=== PATIENT | female | born 1955 | race Caucasian/White ===

== ENCOUNTER → 2017-01-02 | Outpatient (CLI) | payer OTHER | LOC: GIMAGING 10:21 | PROVIDERS: ATTEND Nurse Practitioner | DX: R05 Cough (principal) | CPT/HCPCS: 71020-PO ==

== ENCOUNTER → 2017-04-26 | Outpatient (CLI) | payer OTHER | LOC: FIMAGING 11:45 | PROVIDERS: ATTEND Family Medicine | DX: J40 Bronchitis, not specified as acute or chronic (principal); I51.7 Cardiomegaly ==

== ENCOUNTER 2017-06-04 06:44 | Day surgery (SDC) | payer OTHER ==
[2017-06-04] MEDS ORDERED: NS 500 ML IV SCH (08:00)
[2017-06-04 08:06] VITALS: TEMP 97.7
[2017-06-04] MEDS ORDERED: LIDOCAINE 2% JELLY 5 ML TUBE ONE (08:26)
[2017-06-04] MEDS ORDERED: SIMETHICONE DROPS 30 ML BOTTLE ONE (08:27)
[2017-06-04] MEDS ORDERED: MIDAZOLAM 2 MG/2 ML VIAL ONE ×2 (08:33→08:34)
[2017-06-04] MEDS ORDERED: fentaNYL 100 MCG/2 ML INJ ONE ×2 (08:35→08:36)
[2017-06-04] MEDS ORDERED: ALBUTEROL 3 ML DEYVIAL ONE (08:38)
--- NOTE | 2017-06-04 08:47 | PDHPUP ---
History & Physical Update H&P update statement: This history and physical update is based on an assessment of the patient which was completed after admission or registration (within 24 hours), but prior to the surgery/procedure. H&P update: H&P reviewed & patient examined, no change in patient's condition since H&P completed
[2017-06-04] MEDS ORDERED: LIDOCAINE 1% 300 MG/30 ML SDV ONE (08:48)
--- NOTE | 2017-06-04 08:49 | PDPROPOC ---
Sedation Plan of Care Sedation Plan of Care: vital signs stable, mental status noted, patient educated of risks, benefits, alternatives, patient can tolerate sedation ASA Classification: ASA 1 Mallampati Score: Class 3
[2017-06-04 09:46] VITALS: RESP 15
[2017-06-04 11:25] VITALS: BP 133/75; PULSE 56; O2SAT 95
== END 2017-06-04 10:05 | disposition home or self-care (01) ==
LOC: FSGY 06:44
PROVIDERS: ATTEND Internal Medicine Critical Care Medicine
PROC: 0B9B8ZX Drainage of Left Lower Lobe Bronchus, Via Natural or Artificial Opening Endoscopic, Diagnostic (ICD-10-PCS; principal; 2017-06-04 08:30)
DX: R05 Cough (principal); R91.8 Other nonspecific abnormal finding of lung field; I10 Essential (primary) hypertension; E78.5 Hyperlipidemia, unspecified; Z86.718 Personal history of other venous thrombosis and embolism
CPT/HCPCS: J0171; J2250; J3010

== ENCOUNTER → 2017-07-18 | Outpatient (CLI) | payer OTHER | LOC: BHFA 10:00 | PROVIDERS: ATTEND Internal Medicine Cardiovascular Disease | DX: I10 Essential (primary) hypertension (principal); R05 Cough; I34.0 Nonrheumatic mitral (valve) insufficiency ==

== ENCOUNTER 2017-08-10 23:10 | Inpatient (IN) | payer OTHER ==
[2017-08-10] MEDS ORDERED: OXYCODONE/APAP 5/325 TAB PO ONE (23:41)
--- NOTE | 2017-08-10 23:45 | EDPHY ---
H & P Stated Complaint: slip and fall, hit head with hematoma and spine and rib pain Time Seen by Provider: 08/10/17 23:23 HPI/ROS: Chief Complaint: Back and head pain status post fall HPI: 61-year-old woman who is scheduled for colonoscopy tomorrow morning. She has been going through a [employer] bowel prep is been having profuse watery diarrhea. Patient states she started developing nausea vomiting this evening. She felt in up wave of nausea come on her and ran to the kitchen. She vomited before getting there on the kitchen floor. She then proceeded to slipped on her emesis, falling and landing on her back. She struck her occiput on the ground and states she landed subcutaneously on her back. She did not have a loss of consciousness. She has had worsening bilateral upper and lower back pain since. No shortness of breath. No chest pain. No abdominal pain. After a little while she was able to get up and walk. She has no new numbness or weakness. No tingling. Does not have a history of back pain in the past. Has a history of are as D on the right side and normally takes Lyrica, baclofen, and takes benzos at night for sleep. She also normally takes Celexa but has been off this in preparation for her colonoscopy. She has not had any painting or loss of conscious. No chest pain. ROS: 10 point Review of Systems is negative except as noted in the HPI. PMH: Hypothyroidism, RSD, Social History: No smoking, no alcohol, no recreational drug use Family History: non-contributory Physical Exam: Gen: Awake, Alert, No Distress HEENT: Moderate occipital hematoma with tenderness. No step-offs or crepitus. Nose: no rhinorrhea Eyes: PERRLA, EOMI Mouth: Moist mucosa Neck: Supple, no JVD Chest: nontender, lungs clear to auscultation Heart: S1, S2 normal, no murmur Abd: Soft, non-tender, no guarding Back: no CVA tenderness, mild diffuse midline tenderness without step-offs or crepitus in the thoraco and lumbar spine. Moderate bilateral paraspinal muscle spasm. 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, bilateral TKRs, c sections - Social History Smoking Status: Never smoked Constitutional: Initial Vital Signs Temperature (C) 36.7 C 08/10/17 23:27 Heart Rate 85 08/10/17 23:27 Respiratory Rate 20 08/10/17 23:27 Blood Pressure 132/103 H 08/10/17 23:27 O2 Sat (%) 78 L 08/10/17 23:27 O2 Delivery Mode Nasal Cannula O2 (L/minute) 2 Allergies/Adverse Reactions: No Known Allergies Allergy (Verified 06/04/17 07:41) Home Medications: Medication Instructions Recorded Atorvastatin Calcium 20 mg PO HS 06/04/17 Baclofen 10 mg (*) 10 mg PO TID PRN 06/04/17 HCTZ (*) 25 mg PO HS 06/04/17 Metoprolol Succinate Xr 50 mg PO BID 06/04/17 Montelukast Sodium 10 mg PO HS 06/04/17 Pregabalin [Lyrica] 150 mg PO HS 06/04/17 celeCOXIB [Celebrex (*)] 200 mg PO HS 06/04/17 clonazePAM [klonoPIN (*)] 1 mg PO HS 06/04/17 traZODone [traZODONE 50MG (*)] 50 mg PO HS 06/04/17 Flonase Allergy Relief 08/10/17 Medical Decision Making - Diagnostics Imaging Results: Lumbar and thoracic x-rays reveal a T12 anterior compression fracture per my interpretation. Imaging: I viewed and interpreted images myself ED Course/Re-evaluation: 5-year-old woman status post fall after vomiting after a bowel prep for colonoscopy. She has no neurologic findings. X-rays show a presumably new T12 anterior compression fracture. She has required morphine and Dilaudid here. Will admit for pain control. I have discussed with Dr. Myers. He will admit for further care. - Data Points Medications Given: Discontinued Medications Sodium Chloride (Ns) 1,000 mls @ 0 mls/hr IV EDNOW ONE; Wide Open PRN Reason: Protocol Stop: 08/11/17 00:29 Last Admin: 08/11/17 00:29 Dose: 1,000 mls Morphine Sulfate (Morphine) 4 mg IVP EDNOW ONE Stop: 08/11/17 00:23 Last Admin: 08/11/17 00:28 Dose: 4 mg Ondansetron HCl (Zofran Odt) 4 mg PO EDNOW ONE Stop: 08/10/17 23:48 Last Admin: 08/10/17 23:48 Dose: 4 mg Oxycodone/Acetaminophen (Percocet 5/325) 2 tab PO EDNOW ONE Stop: 08/10/17 23:42 Last Admin: 08/11/17 00:32 Dose: Not Given Promethazine HCl (Phenergan) 12.5 mg IVP EDNOW ONE Stop: 08/11/17 00:41 Last Admin: 08/11/17 00:42 Dose: 12.5 mg Departure - Departure Disposition: [facility] Inpatient Acute Clinical Impression: Thoracic compression fracture, Nausea & vomiting Condition: Fair Referrals: Patient,NotPresent [Unknown] - As per Instructions
[2017-08-10] MEDS ORDERED: ONDANSETRON DISINTEGRATING 4 MG TAB ONE (23:47)
[2017-08-10] MEDS ORDERED: ONDANSETRON DISINTEGRATING 4 MG TAB PO ONE (23:47)
[2017-08-11] MEDS ORDERED: NS 1,000 ML IV ONE (00:28)
[2017-08-11] MEDS ORDERED: PROMETHAZINE HCL 25 MG/ML INJ IVP ONE (00:40)
[2017-08-11] MEDS ORDERED: HYDROmorphONE/DILAUDID 1 MG/ML INJ IVP ONE (00:49)
[2017-08-11 01:05] LABS: % IMMATURE GRANULYOCYTES 0.9 % (0.0-1.1); ABSOLUTE IMMATURE GRANULOCYTES 0.09 10^3/uL (0.00-0.10); ADD DIFF? NO; ADD MORPH? NO; ADD SCAN? NO; ATYPICAL LYMPHOCYTE FLAG 10 (0-99); FRAGMENT RBC FLAG 0 (0-99); HEMATOCRIT 40.1 % (38.0-47.0); HEMOGLOBIN 14.4 g/dL (12.6-16.3); LEFT SHIFT FLG 10 (0-99); LIPEMIA HEMOLYSIS FLAG 90 (0-99); MEAN CELL HEMOGLOBIN 32.2 pg (27.9-34.1); MEAN CELL HEMOGLOBIN CONCENTR. 35.9 g/dL (32.4-36.7); MEAN CELL VOLUME 89.7 fL (81.5-99.8); MEAN PLATELET VOLUME 10.3 fL (8.7-11.7); PLATELET CLUMPS FLAG 0 (0-99); PLATELET COUNT 216 10^3/uL (150-400); RED BLOOD CELL COUNT 4.47 10^6/uL (4.18-5.33); RED CELL DISTRIBUTION WIDTH 12.7 % (11.5-15.2)
--- NOTE | 2017-08-11 01:08 | PDGENHP ---
History and Physical - Chief Complaint Back pain - History of Present Illness 61 yo F w/ hx of chronic cough, CAD, and RSD presents with back pain after a fall. Patient was undergoing a colonoscopy prep, which led to nausea and vomiting. She slipped on some of her vomit and fell on her back. After that she experienced severe back pain. She denies any leg weakness or bowel/bladder incontinence. Colonoscopy was for routine screening purposes. Work-up in the ED was notable for a T12 compression fracture. She is being admitted for pain control and therapy evaluation. History Information - Allergies/Home Medication List Allergies/Adverse Reactions: No Known Allergies Allergy (Verified 06/04/17 07:41) Home Medications: Atorvastatin Calcium 20 mg PO HS 06/04/17 [Last Taken 06/03/17 23:00] Baclofen 10 mg (*) 10 mg PO TID PRN 06/04/17 [Last Taken 06/03/17 23:00] HCTZ (*) 25 mg PO HS 06/04/17 [Last Taken 06/03/17 23:00] Metoprolol Succinate Xr 50 mg PO BID 06/04/17 [Last Taken 06/03/17 23:00] Montelukast Sodium 10 mg PO HS 06/04/17 [Last Taken 06/03/17 23:00] Pregabalin [Lyrica] 150 mg PO HS 06/04/17 [Last Taken 06/03/17 23:00] celeCOXIB [Celebrex (*)] 200 mg PO HS 06/04/17 [Last Taken 06/03/17 23:00] clonazePAM [klonoPIN (*)] 1 mg PO HS 06/04/17 [Last Taken 06/03/17 23:00] traZODone [traZODONE 50MG (*)] 50 mg PO HS 06/04/17 [Last Taken 06/03/17 23:00] Flonase Allergy Relief 08/10/17 [Last Taken Unknown] I have personally reviewed and updated: family history, medical history - Past Medical History coronary artery disease Additional medical history: Chronic cough. RSD - Surgical History Additional surgical history: Bilateral TKAs in 2009 - Family History Positive for: cancer Additional family history: Thyroid disease - Social History Smoking Status: Never smoked Drug Use: None Review of Systems Review of Systems: ROS: 10pt was reviewed & negative except for what was stated in HPI & below Physical Exam Physical Exam: Temp Pulse Resp BP Pulse Ox 36.7 C 79 20 163/86 H 96 08/10/17 23:27 08/11/17 00:44 08/11/17 00:44 08/11/17 00:44 08/11/17 00:44 Constitutional: appears nourished, uncomfortable Eyes: PERRL, EOMI Ears, Nose, Mouth, Throat: moist mucous membranes, no oral mucosal ulcers Cardiovascular: regular rate and rhythym, no murmur, rub, or gallop Respiratory: no respiratory distress, no rales or rhonchi Gastrointestinal: normoactive bowel sounds, soft, non-tender abdomen Skin: warm, normal color Musculoskeletal: full muscle strength, no muscle tenderness Neurologic: AAOx3, sensation intact bilaterally, CN II-XII Intact, No weakness, No numbness Psychiatric: interacting appropriately, not anxious Lab Data & Imaging Review 08/11/17 00:20 08/11/17 00:20 Imaging Review: Per discussion with ED physician Dr. Rodriguez, T12 compression fracture on XR. Assessment & Plan Assessment: 61 yo F w/ hx of RSD and chronic cough presents with fall and resulting compression fracture. Plan: 1. T12 Compression fracture - As a result of mechanical fall. Patient in severe pain upon arrival necessitating admission for pain control. - Oxycodone, hydromorphone PRN for pain control - Admit for observation - PT/OT consulted 2. Hx of chronic cough - With unclear etiology despite extensive work-up. Followed by pulmonology as an outpatient. 3. RSD - On Clonazepam, Celebrex, Lyrica, and Baclofen as outpatient. 4. Hx CAD - Patient reports prior cath but no intervention performed. On ASA, BB , statin as outpatient. Diet - Regular Code - Full Ppx - SCDs Dispo - Admit to observation status
[2017-08-11 01:10] LABS: ANION GAP 10 mEq/L (8-16); CALCIUM 9.2 mg/dL (8.5-10.4); CARBON DIOXIDE 27 mEq/l (22-31); CHLORIDE 89 mEq/L (97-110); CREATININE 0.7 mg/dL (0.6-1.0); GLOMERULAR FILTRATION RATE > 60; GLUCOSE 113 mg/dL (70-100); POTASSIUM 3.1 mEq/L (3.5-5.2); SODIUM 126 mEq/L (134-144)
[2017-08-11] MEDS: HYDROmorphONE/DILAUDID 1 MG/ML INJ IVP PRN ×3 (02:25→19:27)
[2017-08-11] MEDS: ONDANSETRON 4 MG/2 ML VIAL IVP PRN ×3 (02:25→18:26)
[2017-08-11] MEDS: ONDANSETRON DISINTEGRATING 4 MG TAB PO PRN ×3 (03:57→22:55)
[2017-08-11] MEDS: oxyCODONE IR 5 MG TAB PO PRN ×2 (03:57→08:07)
--- NOTE | 2017-08-11 06:30 | CPEKG ---
Heart Rate: 66 RR Interval: 909 P-R Interval: 172 QRSD Interval: 102 QT Interval: 457 QTC Interval: 479 P Mcbee: 38 QRS Mcbee: 2 T Wave Mcbee: 104 EKG Severity - ABNORMAL ECG - EKG Impression: SINUS RHYTHM EKG Impression: NONSPECIFIC T ABNORMALITIES, LATERAL LEADS Electronically Signed By: J Carlos Lopez 14-Aug-2017 13:46:06
[2017-08-11 07:03] LABS: CK-MB INTERPRETATION NEGATIVE (NEGATIVE); CREATINE KINASE-MB FRACTION 2.79 ng/mL (0.00-3.19)
[2017-08-11 07:09] LABS: TROPONIN I 0.032 ng/mL (0.000-0.034)
[2017-08-11] MEDS: ACETAMINOPHEN 325 MG TAB PO PRN (08:07)
[2017-08-11] MEDS: D5W NS 1,000 ML IV SCH (09:48)
[2017-08-11] MEDS: PANTOPRAZOLE SODIUM 40 MG in NS 100 ML IV SCH (10:04)
--- NOTE | 2017-08-11 12:17 | PDANEPAE ---
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 - Pulmonary History Hx COPD: No Hx Asthma/Reactive Airway Disease: No Hx Recent Upper Respiratory Infection: No Hx Oxygen in Use at Home: No Hx Sleep Apnea: Yes Sleep Apnea Screening Result - Last Documented: Negative Pulmonary History Comment: chronic cough for 2 years that has gotten progressively worse - Neurologic History Hx Cerebrovascular Accident: No Hx Seizures: Yes Hx Dementia: No Neurologic History Comment: 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 multiple knee surgies with left TKA and right TKA in 2009. ulnar medial nerve graft repair right arm 1997 ANE Review of Systems Review of systems is: negative Review of Systems: - Exercise capacity Exercise capacity: >=4 METS ANE Patient History - Allergies Allergies/Adverse Reactions: No Known Allergies Allergy (Verified 06/04/17 07:41) - Home Medications Home medications: home medication list seen and reviewed Home Medications: Baclofen [Baclofen 10 mg (*)] 20 mg PO HS 06/04/17 [Last Taken 08/09/17] Hydrochlorothiazide [HCTZ (*)] 25 mg PO HS 06/04/17 [Last Taken 08/09/17] Metoprolol Succinate Xr [Toprol Xl 50 mg (*)] 50 mg PO BID 06/04/17 [Last Taken 08/10/17 09:00] Montelukast Sodium [Singulair 10 mg (*)] 10 mg PO HS 06/04/17 [Last Taken ] celeCOXIB [Celebrex (*)] 400 mg PO HS 06/04/17 [Last Taken 08/09/17] clonazePAM [klonoPIN (*)] 1 mg PO HS 06/04/17 [Last Taken 08/09/17] traZODone [traZODONE 50MG (*)] 100 mg PO HS 06/04/17 [Last Taken 08/09/17] Fluticasone Nasal [Flonase Nasal [place] (RX)] 2 sprays NASAL HS 08/10/17 [Last Taken 08/09/17] Atorvastatin Calcium [Lipitor 20 mg (*)] 20 mg PO HS 08/11/17 [Last Taken ] Cetirizine [ZyrTEC 10 mg (*)] 10 mg PO HS 08/11/17 [Last Taken 08/09/17] Cholecalciferol Vit D3 [Vitamin D3 (*)] 1,000 units PO HS 08/11/17 [Last Taken 08/09/17] Estradiol [VAGIFEM] 10 mcg VG SUWE 08/11/17 [Last Taken 08/06/17] Lidocaine 5% [Lidoderm 5% Patch (*)] 1 ea TD HS 08/11/17 [Last Taken 08/09/17] Multivitamins [Multivitamin (*)] 1 each PO HS 08/11/17 [Last Taken 08/09/17] Pregabalin [Lyrica 75mg (*)] 150 mg PO HS 08/11/17 [Last Taken 08/09/17] - NPO status NPO Status: no food or drink >8 hours NPO Since - Liquids (Date): 08/10/17 NPO Since - Liquids (Time): 17:00 NPO Since - Solids (Date): 08/09/17 NPO Since - Solids (Time): 19:00 - Anes Hx Anes Hx: no prior problems - Smoking Hx Smoking Status: Never smoked - Family Anes Hx Family Anes Hx: none Family Hx Anesthesia Complications: no ANE Labs/Vital Signs - Labs Result Diagrams: 08/11/17 00:20 08/11/17 00:20 - Vital Signs Blood Pressure: 114/67 Heart Rate: 76 Respiratory Rate: 18 O2 Sat (%): 96 Height: 172.72 cm Weight: 74.8 kg ANE Physical Exam - Airway Neck exam: FROM Mallampati Score: Class 2 Mouth exam: normal dental/mouth exam - Pulmonary Pulmonary: no respiratory distress - Cardiovascular Cardiovascular: regular rate and rhythym - ASA Status ASA Status: II ANE Anesthesia Plan Total IV Anesthesia: Yes
[2017-08-11] MEDS ORDERED: LIDOCAINE 2% 100 MG/5 ML SYR ONE (12:20)
[2017-08-11] MEDS ORDERED: PROPOFOL/EMULSION 500 MG/50 ML BOTTLE IV ONE ×2 (12:20→17:18)
[2017-08-11] MEDS ORDERED: OXYCODONE/APAP 5/325 TAB PO PRN (12:56)
[2017-08-11] MEDS ORDERED: ONDANSETRON 4 MG/2 ML VIAL IVP PRN (12:56)
[2017-08-11] MEDS ORDERED: fentaNYL 100 MCG/2 ML INJ IVP PRN (12:56)
[2017-08-11] MEDS ORDERED: NALOXONE HCL 0.4 MG/ML INJ IVP PRN (12:56)
[2017-08-11] MEDS ORDERED: DEXAMETHASONE 4 MG/ML VIAL IVP PRN (12:56)
[2017-08-11] MEDS ORDERED: HYDROCODONE/APAP 5/325 TAB PO PRN (12:56)
--- NOTE | 2017-08-11 12:57 | POSTANESTH ---
Post Anesthetic Evaluation Cardiovascular Status: Similar to Pre-Op Cond Respiratory Status: Similar to Pre-op Cond. Level of Consciousness/Mental Status: Can Participate in Eval, Moderately Sleepy Pain Control: Adequate, Prn Tx Ordered Nausea/Vomiting Control: Adequate, Prn Tx Ordered Complications Possibly Related to Anesthesia: None Noted
--- NOTE | 2017-08-11 12:57 | GIREPORT ---
Former[facility], Later [facility] Surgical Services - Endoscopy Department Patient Name: STANLEY VALDEZ Procedure Date: 08/11/2017 12:29 PM Patient Type: Inpatient Attending MD/ ER Physician: Allyn Freitas MD Procedure: Upper GI endoscopy Indications: Dysphagia, Heartburn, Chronic cough Providers: Allyn Freitas MD Medicines: Sedation Administered by an Anesthesia Professional Complications: No immediate complications. Description of Procedure: After obtaining informed consent, the endoscope was passed under direct vision. Throughout the procedure, the patient's blood pressure, pulse, and oxygen saturations were monitored continuous ly. The Endoscope was introduced through the mouth, and advanced to the third part of duodenum. The upper GI endoscopy was accomplished without difficulty. The patient tolerated the procedure well. Findings: The middle third of the esophagus was normal. Biopsies were taken with a cold forceps for histol ogy. The examined esophagus was normal. A guidewire was placed and the scope was withdrawn. Dilation was performed with a Savary dilator with no resistance at 54 Fr. Diffuse mild inflammation characterized by congestion (edema) and erythema was found in the enti re examined stomach. Biopsies were taken with a cold forceps for histology. The examined duodenum was normal. Estimated Blood Loss: Estimated blood loss: none. Post Op Diagnosis: - Normal middle third of esophagus. Biopsied. - Normal esophagus. Dilated. - Gastritis. Biopsied. - Normal examined duodenum. Recommendation: - [facility]. - Await pathology results. - Return to GI office, with Dr. Byrne, as previously scheduled. Attending Participation: I personally performed the entire procedure. ,Electronically Sigened by Allyn Freitas MD> Allyn Freitas MD 08/11/2017 12:56:49 PM Number of Addenda: 0 Note Initiated On: 08/11/2017 12:29 PM [email or web address]
--- NOTE | 2017-08-11 12:58 | GIREPORT ---
[facility] Surgical Services - Endoscopy Department Patient Name: STANLEY VALDEZ Procedure Date: 08/11/2017 12:38 PM Patient Type: Inpatient Attending MD/ ER Physician: Allyn Freitas MD Procedure: Colonoscopy Indications: Screening for colorectal malignant neoplasm, Colon cancer screening in patient at increased risk: Family history of 1st-degree relative with c olon polyps at age 60 years (or older), Colon cancer screening in patient at increased risk: Family history of colon polyps in multiple 1st-degree relatives Providers: Allyn Freitas MD Medicines: Sedation Administered by an Anesthesia Professional Complications: No immediate complications. Description of Procedure: After obtaining informed consent, the scope was passed under direct vision. Throughout the proce dure, the patient's blood pressure, pulse, and oxygen saturations were monitored continuously. The Colonoscope with irrigation channel was introduced through the and advanced to the cecum, identi fied by appendiceal orifice and ileocecal valve. The colonoscopy was performed without difficulty. Th e patient tolerated the procedure well. The quality of the bowel preparation was good. The ileocec al valve, appendiceal orifice, and rectum were photographed. Findings: The entire examined colon appeared normal. Estimated Blood Loss: Estimated blood loss: none. Post Op Diagnosis: - The entire examined colon is normal. - No specimens collected. Recommendation: - Return [facility] to [facility] for [facility] care. - Repeat colonoscopy in 10 years for screening purposes. Attending Participation: I personally performed the entire procedure. ,Electronically Sigened by Allyn Freitas MD> Allyn Freitas MD 08/11/2017 12:58:24 PM Number of Addenda: 0 Note Initiated On: 08/11/2017 12:38 PM Total Procedure Duration Time 0 hours 11 minutes 59 seconds [email or web address]
--- NOTE | 2017-08-11 13:09 | SUROPNOTE ---
[facility] Operative Report - Surgery BRIEF EGD/COLON NOTE (full note to follow) MEDS: per anesthesia PREP QUALITY: excellent INDICATION: screening, dysphagia, cough COMPLICATIONS: none acutely FINDINGS EGD - nl esophagus - bx'd and dilated - minimal gastritis - bx'd - nl duodenum COLON - normal IMPRESSION/RECS: 1. Screening - recall for colon in 10yrs 2. Cough/dysphagia - no clear explanation at EGD - bx of esopahgus and stomach - dilation of esophagus empricially with 54Fr savary 3. Will follow-up in GI clinic, with Dr. Byrne 4. My office will call pt to review path and discuss f/u 5. Will sign off, call with questions
--- NOTE | 2017-08-11 13:39 | HOSPPROG ---
Hospitalist Progress Note Assessment/Plan: 61 yo F w/ hx of RSD and chronic cough presents with fall and resulting compression fracture. Plan: #. T12 Compression fracture - - As a result of mechanical fall. - Patient in severe pain - unable to tolerate brace due to RSD. - hope for Vertebroplasty per IR, await consult - Oxycodone, hydromorphone PRN for pain control - Admit for observation - PT/OT consulted #. GI - pt was prepping for EGD/colon when fell - D/W Dr Freitas, EGD/colon done today - FU outpt # Hx of chronic cough - - With unclear etiology despite extensive work-up. - Followed by pulmonology as an outpatient. - EGD today #. RSD - RUE - On Clonazepam, Celebrex, Lyrica, and Baclofen as outpatient. - unable to tolerate back brace - cont meds #. Hx CAD - - Patient reports prior cath but no intervention performed. On ASA, BB, statin as outpatient. Diet - NPO Code - Full Ppx - SCDs Dispo - Admit to observation status Spent >45 minutes in care coordination Subjective: Still having back pain. Some nausea. Objective: Vital Signs Temp Pulse Resp BP Pulse Ox 37 C 76 18 114/67 96 08/11/17 12:59 08/11/17 12:17 08/11/17 12:17 08/11/17 12:17 08/11/17 12:17 08/10/17 08/11/17 08/12/17 05:59 05:59 05:59 Intake Total 1050 Output Total 150 200 Balance 900 -200 - Physical Exam Constitutional: appears nourished, uncomfortable, No chronically ill appearing Eyes: PERRL, anicteric sclera, EOMI Ears, Nose, Mouth, Throat: moist mucous membranes, hearing normal, ears appear normal Cardiovascular: regular rate and rhythym, No JVD, No edema Respiratory: no respiratory distress, no rales or rhonchi, reduced air movement Gastrointestinal: normoactive bowel sounds, No tenderness, No ascites Skin: warm, normal color, No erythema Musculoskeletal: pain with ROM, muscular tenderness, generalized weakness Neurologic: AAOx3 Psychiatric: interacting appropriately, not anxious, not encephalopathic, thought process linear ICD10 Worksheet Patient Problems: Problems Problem Status Onset Thoracic compression fracture Acute Nausea & vomiting Acute
--- NOTE | 2017-08-11 13:44 | GCON ---
[f rep st] CONSULTATION INPATIENT CONSULTATION REFERRING PHYSICIAN: Kristi Franco NP REASON FOR CONSULTATION: Cough, dysphagia, and need for screening colonoscopy. CHIEF COMPLAINT: Back pain. HISTORY OF PRESENT ILLNESS: Briefly, the patient is a 61-year-old, pleasant, female who presents to the hospital after a fall. She sustained this fall because she became faint with nausea and vomiting during her bowel prep. She was due to undergo upper and lower endoscopy today. She came to the hospital because she had severe lower back pain. Ensuing workup led to the diagnosis of a T12 compression fracture. She has been admitted to the hospital for management of this fracture. It was felt that doing her previously scheduled outpatient upper and lower endoscopy at this time would be prudent, given the efficiencies. She did tolerate her prep and reports ultimately having clear stools. She does not want to undertake a repeat prep anytime soon after having undergone her recent fall. She reports she has a family history of colon polyps. She has had 3 first- degree relatives who underwent colonoscopy and were found to have polyps. All 3 of these relatives were over the age of 60. She reports intermittent cough symptoms. These have been for many years. They are rarely associated with some dysphagia. Her prior workup has apparently been unrevealing, she is not responding to proton pump inhibitor therapy. Upper endoscopy had been arranged to evaluate for esophageal sources of cough. ALLERGIES: None. CURRENT MEDICATIONS: Tylenol, Lipitor, baclofen, Celebrex, Zyrtec, vitamin D, Klonopin, Flonase, hydrochlorothiazide, Dilaudid, Lidoderm, Toprol, Singulair, multivitamins, pantoprazole, oxycodone, Zofran, Lyrica, trazodone. 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 SOCIAL HISTORY: She does not drink, smoke, or use drugs. FAMILY HISTORY: Significant for thyroid disease. REVIEW OF SYSTEMS: A complete 10-system review was undertaken with the patient and the pertinent positives and negatives are detailed in the History of Present Illness. PHYSICAL EXAM: GENERAL: This is a well-developed female, in no apparent distress. HEENT: Her pupils are equal, round, reactive to light and accommodation. Her sclerae are nonicteric. Oropharynx is clear. LUNGS: clear to asculation. NECK: Supple without lymphadenopathy. HEART: Regular without murmur. ABDOMEN: Soft. She has normoactive bowel sounds. EXTREMITIES: Free of cyanosis, clubbing, edema. Her right arm is held gingerly on a pillow. NEUROLOGIC: Grossly nonfocal. PSYCHIATRIC: Reveals normal mood and affect. SKIN: warm, dry, no bruises LABORATORY TESTING: Shows a normal CBC. Her sodium is 126, potassium of 3.1, chloride of 89, bicarb of 27, BUN of 11, creatinine 0.7. Imaging shows a T12 compression fracture. IMPRESSION/RECOMMENDATIONS: The patient is admitted to the hospital for the evaluation of a T12 compression fracture that she suffered in a fall on the night prior to admission. She is due for upper and lower endoscopy today, and has undertaken the prep for those procedures. I recommend she undergo those procedures now with the added benefit of using anesthesia for her sedation in the setting of the fracture. In addition, she has undergone the prep and is reluctant to repeat that prep anytime soon. Furthermore, undergoing upper and lower endoscopy should not impact her T12 compression fracture care. /[id number]/MODL MTDD
--- NOTE | 2017-08-11 17:00 | ASMTCMCOM ---
CM Note CM Note Notes: Pt admitted after al fall - sustained T12 compression fx. S/p colonoscopy (planned) today. OT has cleared. PT is still pending. CM to follow for any d/c needs. Date Signed: 08/11/2017 05:00 PM Electronically Signed By:PACO Hernandez
[2017-08-11] MEDS ORDERED: fentaNYL 100 MCG/2 ML INJ ONE (17:14)
[2017-08-11] MEDS ORDERED: MIDAZOLAM 2 MG/2 ML VIAL ONE ×2 (17:16→17:30)
[2017-08-11] MEDS ORDERED: LIDOCAINE 1% 300 MG/30 ML SDV ONE (17:33)
[2017-08-11] MEDS ORDERED: BUPIVACAINE 0.5% 30 ML SDV ONE (17:34)
--- NOTE | 2017-08-11 17:52 | POSTOPPROG ---
Post Op Note Date of Operation: 08/11/17 Surgeon: Michaela Sandra Anesthesiologist: Dr. Tapia Pre-op Diagnosis: T12 fracture Post-op Diagnosis: same Indication: severe pain Procedure: T12 kyphoplasty Findings: excellent cement distribution Inf/Abcess present in the surg proc area at time of surgery?: No Depth: Superfical (Skin SQ) EBL: Minimal Complications: None
--- NOTE | 2017-08-11 18:09 | POSTANESTH ---
Post Anesthetic Evaluation Cardiovascular Status: Normal, Stable Respiratory Status: Normal, Stable Level of Consciousness/Mental Status: Can Participate in Eval Pain Control: Adequate, Prn Tx Ordered Nausea/Vomiting Control: Adequate, Prn Tx Ordered Complications Possibly Related to Anesthesia: None Noted
[2017-08-11] MEDS ORDERED: ONDANSETRON 4 MG/2 ML VIAL ONE (18:25)
[2017-08-11] MEDS ORDERED: HYDROmorphONE/DILAUDID 1 MG/ML INJ ONE (19:26)
[2017-08-11] MEDS: clonazePAM 1 MG TAB PO SCH (19:40)
[2017-08-11] MEDS ORDERED: HYDROCHLOROTHIAZIDE 25 MG TAB PO SCH (21:00)
[2017-08-11] MEDS: BACLOFEN 10 MG TAB PO SCH (22:52)
[2017-08-11] MEDS: CETIRIZINE 10 MG TAB PO SCH (22:53)
[2017-08-11] MEDS: traZODone 50 MG TAB PO SCH (22:54)
[2017-08-11] MEDS: PREGABALIN 75 MG CAP PO SCH (22:55)
[2017-08-11] MEDS ORDERED: PROMETHAZINE HCL 25 MG/ML INJ IVP PRN (23:26)
[2017-08-11] MEDS: ATORVASTATIN CALCIUM 20 MG TAB PO SCH (23:31)
[2017-08-11] MEDS: PATCH REMOVAL 1 EA PATCH TD SCH (23:32)
[2017-08-11] MEDS: CHOLECALCIFEROL VIT D3 1,000 UNITS TAB PO SCH (23:32)
[2017-08-11] MEDS: MONTELUKAST SODIUM 10 MG TAB PO SCH (23:33)
[2017-08-11] MEDS: FLUTICASONE NASAL 120 SPRAYS/16 GM MDI EACHNARE SCH (23:33)
[2017-08-11] MEDS: MULTIVITAMINS 1 EACH TAB PO SCH (23:33)
[2017-08-11] MEDS: LIDOCAINE 5% 1 EA PATCH TD SCH (23:33)
[2017-08-11] MEDS: METOPROLOL SUCCINATE XR 50 MG TAB PO SCH (23:33)
[2017-08-12] MEDS: D5W NS 1,000 ML IV SCH (01:56)
[2017-08-12] MEDS: ONDANSETRON 4 MG/2 ML VIAL IVP PRN ×2 (01:56→06:43)
[2017-08-12] MEDS: oxyCODONE IR 5 MG TAB PO PRN ×3 (04:53→15:08)
[2017-08-12 05:43] LABS: ANION GAP 7 mEq/L (8-16); CARBON DIOXIDE 28 mEq/l (22-31); CHLORIDE 101 mEq/L (97-110); CREATININE 0.7 mg/dL (0.6-1.0); GLOMERULAR FILTRATION RATE > 60; GLUCOSE 113 mg/dL (70-100); POTASSIUM 3.1 mEq/L (3.5-5.2); SODIUM 136 mEq/L (134-144)
[2017-08-12] MEDS ORDERED: PROTOCOL POTASSIUM 1 DOSE MISC PRN (07:51)
--- NOTE | 2017-08-12 08:25 | HOSPPROG ---
Hospitalist Progress Note Assessment/Plan: 61 yo F w/ hx of RSD and chronic cough presents with fall and resulting compression fracture. Today is my first encounter with the patient, chart reviewed. * T12 compression fracture -status post kyphoplasty on 08/11 -patient did not tolerate the brace * hypokalemia -electrolyte protocol initiated * nausea -refractory to Zofran and Phenergan grand -patient attributes her symptoms from getting a colonoscopy in the prep -trial of low-dose Ativan, can consider some Zyprexa if her symptoms do not resolve * history of chronic cough, dysphagia and heartburn -follow up with pulmonology in the outpatient setting -possible GERD -status post colonoscopy for screening purposes, this was normal -status post upper GI with normal appearing esophagus with esophageal dilation * regional pain syndrome noted in the right upper extremity -resumed home meds which include clonazepam, Celebrex, Lyrica and baclofen * coronary artery disease disease -on aspirin, beta-sabrina and statin * plan. Will check on her later this afternoon to see if she is improved. The other issue she is having significant back pain. Will see how she does with physical therapy and occupational therapy. She may need a assisted facility Subjective: Carol is c/o ongoing nausea. Objective: Vital Signs Temp Pulse Resp BP Pulse Ox 36.8 C 96 18 133/84 H 90 L 08/12/17 08:00 08/12/17 08:00 08/12/17 08:00 08/12/17 08:00 08/12/17 08:00 Laboratory Results 08/12/17 04:58 08/11/17 08/12/17 08/13/17 05:59 05:59 05:59 Intake Total 1050 1500 Output Total 150 1000 Balance 900 500 - Physical Exam Constitutional: uncomfortable Eyes: PERRL Ears, Nose, Mouth, Throat: hearing normal Cardiovascular: regular rate and rhythym Respiratory: no respiratory distress Skin: warm Musculoskeletal: generalized weakness Neurologic: AAOx3 Psychiatric: interacting appropriately ICD10 Worksheet Patient Problems: Problems Problem Status Onset Nausea & vomiting Acute Thoracic compression fracture Acute
[2017-08-12] MEDS: METOPROLOL SUCCINATE XR 50 MG TAB PO SCH ×2 (08:55→20:55)
[2017-08-12] MEDS ORDERED: LORazepam 2 MG/ML INJ IVP ONE (09:31)
--- NOTE | 2017-08-12 10:21 | PDMN ---
Medical Necessity Medical necessity: change to IP; los >2 mn for T12 compression fx r/t fall, w/ inability to tolerate brace, severe pain; await IR eval; comorbid RSD, CAD; per progress note & order 08/11/17
[2017-08-12] MEDS: POTASSIUM CL 10 MEQ TAB PO ONE ×2 (11:38→11:52)
[2017-08-12] MEDS: PANTOPRAZOLE SODIUM 40 MG in NS 100 ML IV SCH (11:51)
[2017-08-12] MEDS: POTASSIUM Cl (KCl) 100 ML IV SCH ×3 (12:53→16:27)
[2017-08-12] MEDS: ONDANSETRON DISINTEGRATING 4 MG TAB PO PRN (15:16)
[2017-08-12] MEDS ORDERED: D5W 1/2 NS W/ 20 KCl/L 1,000 ML IV SCH (15:30)
[2017-08-12] MEDS: ACETAMINOPHEN 325 MG TAB PO PRN ×2 (15:38→19:48)
[2017-08-12] MEDS ORDERED: ENOXAPARIN 40 MG/0.4 ML SYR SC SCH (18:15)
--- NOTE | 2017-08-12 20:44 | SOAPPROG ---
SOAP Progress Note Assessment/Plan: Assessment: It appears that patient is moving better post kyphoplasty, and is reporting much less pain. However, my understanding is that patient is still asking for a good amount of pain medications. Continued nausea. This was contributed to pain degree yesterday when I was discussing kyphoplasty procedure with patient. That does not seem to be the case if patient indeed has less pain now post kyphoplasty, but same amount of nausea. Cause is yet unclear. Plan: Appears to do well from kyphoplasty standpoint. Will sign off. 08/12/17 20:41 Subjective: When I was walking into the room, patient was getting out of bed, without difficulty, with PT. Patient stated "I feel much better...back pain is much better...I couldn't do this yesterday...I just have a little bit of muscle pain left...but I'm still very nauseated. Objective: Vital Signs Temp Pulse Resp BP Pulse Ox 36.8 C 75 16 108/75 94 08/12/17 20:00 08/12/17 20:00 08/12/17 20:00 08/12/17 20:00 08/12/17 20:00 Laboratory Results 08/12/17 04:58 08/11/17 08/12/17 08/13/17 05:59 05:59 05:59 Intake Total 850 400 Output Total 800 Balance 50 400 Dressing without hematoma. No significant pain on palpation. Appears ill; complaining of significant nausea. PT was in room with [facility] pressures applied on forearm to help with nausea. Nausea seems better when pressure was applied, but appears to come back right away when pressure was taken off. ICD10 Worksheet Patient Problems: Problems Problem Status Onset Nausea & vomiting Acute Thoracic compression fracture Acute
[2017-08-12] MEDS: BACLOFEN 10 MG TAB PO SCH (20:53)
[2017-08-12] MEDS: PREGABALIN 75 MG CAP PO SCH (20:54)
[2017-08-12] MEDS: MONTELUKAST SODIUM 10 MG TAB PO SCH (20:54)
[2017-08-12] MEDS: CETIRIZINE 10 MG TAB PO SCH (20:55)
[2017-08-12] MEDS: traZODone 50 MG TAB PO SCH (20:55)
[2017-08-12 20:56] LABS: POTASSIUM 3.2 mEq/L (3.5-5.2)
[2017-08-12] MEDS: CHOLECALCIFEROL VIT D3 1,000 UNITS TAB PO SCH (20:56)
[2017-08-12] MEDS: MULTIVITAMINS 1 EACH TAB PO SCH (20:57)
[2017-08-12] MEDS: LIDOCAINE 5% 1 EA PATCH TD SCH (20:58)
[2017-08-12] MEDS: clonazePAM 1 MG TAB PO SCH (20:58)
[2017-08-12] MEDS: ATORVASTATIN CALCIUM 20 MG TAB PO SCH (20:58)
[2017-08-12] MEDS: ENOXAPARIN 40 MG/0.4 ML SYR SC SCH (20:58)
[2017-08-12] MEDS ORDERED: POTASSIUM CL 20 MEQ TAB PO ONE (22:29)
[2017-08-12] MEDS: FLUTICASONE NASAL 120 SPRAYS/16 GM MDI EACHNARE SCH (22:32)
[2017-08-12] MEDS: PATCH REMOVAL 1 EA PATCH TD SCH (22:43)
[2017-08-13 05:24] LABS: ALANINE AMINOTRANSFERASE 29 IU/L (9-52); ALBUMIN 2.3 g/dL (3.5-5.0); ALKALINE PHOSPHATASE 44 IU/L (38-126); ANION GAP 4 mEq/L (8-16); ASPARTATE AMINOTRANSFERASE 26 IU/L (14-46); BILIRUBIN,TOTAL 0.9 mg/dL (0.1-1.4); BILIRUBIN-CONJUGATED 0.3 mg/dL (0.0-0.5); BILIRUBIN-UNCONJUGATED 0.6 mg/dL (0.0-1.1); CARBON DIOXIDE 31 mEq/l (22-31); CHLORIDE 102 mEq/L (97-110); CREATININE 0.7 mg/dL (0.6-1.0); GLOMERULAR FILTRATION RATE > 60; GLUCOSE 81 mg/dL (70-100); POTASSIUM 3.1 mEq/L (3.5-5.2); SODIUM 137 mEq/L (134-144); TOTAL PROTEIN 4.2 g/dL (6.3-8.2)
[2017-08-13] MEDS ORDERED: POTASSIUM CL 10 MEQ TAB PO ONE ×2 (07:47→20:13)
[2017-08-13] MEDS: ACETAMINOPHEN 325 MG TAB PO PRN ×2 (07:59→16:46)
[2017-08-13] MEDS: METOPROLOL SUCCINATE XR 50 MG TAB PO SCH ×2 (09:54→20:59)
[2017-08-13] MEDS: PANTOPRAZOLE SODIUM 40 MG in NS 100 ML IV SCH (09:59)
--- NOTE | 2017-08-13 10:03 | HOSPPROG ---
Hospitalist Progress Note Assessment/Plan: 61 yo F w/ hx of RSD and chronic cough presents with fall and resulting compression fracture. * T12 compression fracture -status post kyphoplasty on 08/11 -patient did not tolerate the brace -her pain is much better today * hypokalemia -electrolyte protocol initiated *acute hypoxemia -oxygen levels dropped with activity -will get a chest xray for further evaluation * nausea -resolved * history of chronic cough, dysphagia and heartburn -follow up with pulmonology in the outpatient setting -possible GERD -status post colonoscopy for screening purposes, this was normal -status post upper GI with normal appearing esophagus with esophageal dilation * regional pain syndrome noted in the right upper extremity -resumed home meds which include clonazepam, Celebrex, Lyrica and baclofen * coronary artery disease disease -on aspirin, beta-sabrina and statin * plan. f/u with chest xray, spoke w CM/ patient is fearful of falling at home / looking at SNF for strengthening Subjective: Carol is feeling better, nausea and back pain have resolved. Very fearful about returning home. Objective: Vital Signs Temp Pulse Resp BP Pulse Ox 36.8 C 56 L 16 101/57 L 97 08/13/17 07:18 08/13/17 09:54 08/13/17 07:18 08/13/17 09:54 08/13/17 07:18 Laboratory Results 08/13/17 04:52 08/12/17 08/13/17 08/14/17 05:59 05:59 05:59 Intake Total 850 400 Output Total 800 Balance 50 400 - Physical Exam Constitutional: appears nourished, not in pain, uncomfortable Eyes: PERRL Ears, Nose, Mouth, Throat: hearing normal Cardiovascular: regular rate and rhythym Respiratory: no respiratory distress, reduced air movement, rhonchi (few loose) Skin: warm Musculoskeletal: generalized weakness Neurologic: AAOx3 Psychiatric: interacting appropriately, anxious ICD10 Worksheet Patient Problems: Problems Problem Status Onset Nausea & vomiting Acute Thoracic compression fracture Acute
[2017-08-13] MEDS: PANTOPRAZOLE SODIUM 40 MG TAB PO SCH (10:37)
[2017-08-13] MEDS ORDERED: Estradiol [Vagifem] 10 MCG VG SCH (11:40)
[2017-08-13] MEDS ORDERED: IPRATROPIUM/ALBUTEROL 3 ML DEYVIAL IH PRN (12:37)
--- NOTE | 2017-08-13 14:15 | ASMTCMCOM ---
CM Note CM Note Notes: PT and hospitalist [phone] agreeable and request referral to [facility] who accept pt. Pt likely to d/c tomorrow. Pt moved to . Date Signed: 08/13/2017 02:14 PM Electronically Signed By:PACO Landaverde
[2017-08-13] MEDS: AZITHROMYCIN IV 500 MG in D5W 250 ML IV SCH ×3 (17:59→19:23)
[2017-08-13 20:08] LABS: POTASSIUM 3.2 mEq/L (3.5-5.2)
[2017-08-13] MEDS: ATORVASTATIN CALCIUM 20 MG TAB PO SCH (20:30)
[2017-08-13] MEDS: CETIRIZINE 10 MG TAB PO SCH (20:30)
[2017-08-13] MEDS: clonazePAM 1 MG TAB PO SCH (20:31)
[2017-08-13] MEDS: MONTELUKAST SODIUM 10 MG TAB PO SCH (20:31)
[2017-08-13] MEDS: BACLOFEN 10 MG TAB PO SCH (20:32)
[2017-08-13] MEDS: traZODone 100 MG TAB PO SCH (20:32)
[2017-08-13] MEDS: CHOLECALCIFEROL VIT D3 1,000 UNITS TAB PO SCH (20:33)
[2017-08-13] MEDS: LIDOCAINE 5% 1 EA PATCH TD SCH (20:35)
[2017-08-13] MEDS: PREGABALIN 75 MG CAP PO SCH (20:44)
[2017-08-13] MEDS: MULTIVITAMINS 1 EACH TAB PO SCH (20:47)
[2017-08-13] MEDS ORDERED: POTASSIUM CL 10 MEQ TAB ONE (20:48)
[2017-08-13] MEDS: FLUTICASONE NASAL 120 SPRAYS/16 GM MDI EACHNARE SCH (21:14)
[2017-08-13] MEDS: PATCH REMOVAL 1 EA PATCH TD SCH (22:06)
[2017-08-13] MEDS: ENOXAPARIN 40 MG/0.4 ML SYR SC SCH (22:06)
[2017-08-14 05:06] LABS: % IMMATURE GRANULYOCYTES 0.4 % (0.0-1.1); ABSOLUTE IMMATURE GRANULOCYTES 0.02 10^3/uL (0.00-0.10); ADD DIFF? NO; ADD MORPH? NO; ADD SCAN? NO; ATYPICAL LYMPHOCYTE FLAG 10 (0-99); FRAGMENT RBC FLAG 20 (0-99); HEMATOCRIT 29.3 % (38.0-47.0); HEMOGLOBIN 10.3 g/dL (12.6-16.3); LEFT SHIFT FLG 0 (0-99); LIPEMIA HEMOLYSIS FLAG 90 (0-99); MEAN CELL HEMOGLOBIN 32.5 pg (27.9-34.1); MEAN CELL HEMOGLOBIN CONCENTR. 35.2 g/dL (32.4-36.7); MEAN CELL VOLUME 92.4 fL (81.5-99.8); MEAN PLATELET VOLUME 10.3 fL (8.7-11.7); PLATELET CLUMPS FLAG 10 (0-99); PLATELET COUNT 141 10^3/uL (150-400); RED BLOOD CELL COUNT 3.17 10^6/uL (4.18-5.33)
[2017-08-14 05:26] LABS: ANION GAP 3 mEq/L (8-16); CALCIUM 8.3 mg/dL (8.5-10.4); CARBON DIOXIDE 30 mEq/l (22-31); CHLORIDE 105 mEq/L (97-110); CREATININE 0.7 mg/dL (0.6-1.0); GLOMERULAR FILTRATION RATE > 60; GLUCOSE 82 mg/dL (70-100); POTASSIUM 3.8 mEq/L (3.5-5.2); SODIUM 138 mEq/L (134-144)
[2017-08-14] MEDS: ACETAMINOPHEN 325 MG TAB PO PRN ×2 (09:05→16:33)
[2017-08-14] MEDS: ALBUTEROL 3 ML DEYVIAL IH PRN (09:06)
[2017-08-14] MEDS: PANTOPRAZOLE SODIUM 40 MG TAB PO SCH (09:06)
[2017-08-14] MEDS: METOPROLOL SUCCINATE XR 50 MG TAB PO SCH ×2 (10:43→21:09)
--- NOTE | 2017-08-14 11:02 | HOSPPROG ---
Hospitalist Progress Note Assessment/Plan: 61 yo F w/ hx of RSD and chronic cough presents with fall and resulting compression fracture. * T12 compression fracture -status post kyphoplasty on 08/11 -patient did not tolerate the brace -her pain has resolved * hypokalemia -electrolyte protocol initiated *acute hypoxemia/left lower lobe pna -blood cx pending -procalcitonin at 0.25 which shows possible local bacterial infection -day #2 of azithromycin and ceftriaxone -Influenza is negative -trial of Advair/ has hx of bronchitis, chronic cough * nausea -resolved * history of chronic cough, dysphagia and heartburn -follow up with pulmonology in the outpatient setting -possible GERD -status post colonoscopy for screening purposes, this was normal -status post upper GI with normal appearing esophagus with esophageal dilation * regional pain syndrome noted in the right upper extremity -resumed home meds which include clonazepam, Celebrex, Lyrica and baclofen * coronary artery disease disease -on aspirin, beta-sabrina and statin * plan. SNF tomorrow, further f/u with Dr Ocampo/pulmonology Subjective: Carol is feeling better/ still short of breath, but feeling better. Objective: Vital Signs Temp Pulse Resp BP Pulse Ox 36.8 C 65 18 121/69 H 95 08/14/17 07:42 08/14/17 07:42 08/14/17 07:42 08/14/17 07:42 08/14/17 07:42 Laboratory Results 08/14/17 04:39 08/14/17 04:39 08/13/17 08/14/17 08/15/17 05:59 05:59 05:59 Intake Total 400 950 Output Total 1200 600 Balance 400 -250 -600 - Physical Exam Constitutional: no apparent distress, appears nourished, not in pain Eyes: PERRL Ears, Nose, Mouth, Throat: hearing normal Cardiovascular: regular rate and rhythym Respiratory: no respiratory distress, reduced air movement (left base) Skin: warm Musculoskeletal: generalized weakness Neurologic: AAOx3 Psychiatric: interacting appropriately, not anxious ICD10 Worksheet Patient Problems: Problems Problem Status Onset Nausea & vomiting Acute Thoracic compression fracture Acute
[2017-08-14] MEDS ORDERED: POTASSIUM CL 10 MEQ TAB PO ONE ×2 (11:33→21:03)
[2017-08-14] MEDS: FLUTICASONE/SALMETER 250/50MCG DISKUS IH SCH ×2 (12:13→22:09)
[2017-08-14] MEDS ORDERED: Estradiol [Vagifem] 10 MCG VG SCH (15:15)
[2017-08-14] MEDS: AZITHROMYCIN IV 500 MG in D5W 250 ML IV SCH (17:00)
[2017-08-14] MEDS ORDERED: FLU VACC QS 2017-18 (3YR+)/PF 0.5 ML SYR (FLUARIX QUAD) IM ONE (17:38)
[2017-08-14] MEDS ORDERED: PNEUMOCOCCAL 0.5ML VACCINE VIAL IM ONE (17:38)
[2017-08-14 20:07] LABS: POTASSIUM 3.8 mEq/L (3.5-5.2)
[2017-08-14] MEDS: BACLOFEN 10 MG TAB PO SCH (21:05)
[2017-08-14] MEDS: ATORVASTATIN CALCIUM 20 MG TAB PO SCH (21:05)
[2017-08-14] MEDS: CETIRIZINE 10 MG TAB PO SCH (21:07)
[2017-08-14] MEDS: CHOLECALCIFEROL VIT D3 1,000 UNITS TAB PO SCH (21:07)
[2017-08-14] MEDS: ENOXAPARIN 40 MG/0.4 ML SYR SC SCH (21:07)
[2017-08-14] MEDS: clonazePAM 1 MG TAB PO SCH (21:07)
[2017-08-14] MEDS: PREGABALIN 75 MG CAP PO SCH (21:10)
[2017-08-14] MEDS: MONTELUKAST SODIUM 10 MG TAB PO SCH (21:10)
[2017-08-14] MEDS: MULTIVITAMINS 1 EACH TAB PO SCH (21:10)
[2017-08-14] MEDS: traZODone 100 MG TAB PO SCH (21:20)
[2017-08-14] MEDS: LIDOCAINE 5% 1 EA PATCH TD SCH (21:21)
[2017-08-14] MEDS: PATCH REMOVAL 1 EA PATCH TD SCH (22:41)
[2017-08-15 05:28] LABS: POTASSIUM 3.8 mEq/L (3.5-5.2)
[2017-08-15] MEDS: ACETAMINOPHEN 325 MG TAB PO PRN ×2 (05:39→12:10)
[2017-08-15] MEDS: FLUTICASONE NASAL 120 SPRAYS/16 GM MDI EACHNARE SCH (07:35)
[2017-08-15] MEDS: METOPROLOL SUCCINATE XR 50 MG TAB PO SCH (08:15)
[2017-08-15] MEDS: PANTOPRAZOLE SODIUM 40 MG TAB PO SCH (08:15)
[2017-08-15] MEDS: FLUTICASONE/SALMETER 250/50MCG DISKUS IH SCH (08:31)
[2017-08-15] MEDS: ALBUTEROL 3 ML DEYVIAL IH PRN (08:41)
[2017-08-15] MEDS ORDERED: POTASSIUM CL 10 MEQ TAB PO ONE (09:00)
[2017-08-15] MEDS ORDERED: LACTULOSE 20 GM/30 ML UDCUP PO PRN (09:46)
[2017-08-15] MEDS ORDERED: MAGNESIUM HYDROXIDE 30 ML UDCUP PO PRN (09:46)
[2017-08-15] MEDS ORDERED: BISACODYL 10 MG SUPP PR PRN (09:46)
[2017-08-15] MEDS ORDERED: POLYETHYLENE GLYCOL 3350 17 GM PKT PO SCH (10:00)
--- NOTE | 2017-08-15 11:36 | HOSPPROG ---
Hospitalist Progress Note Assessment/Plan: 61 yo F w/ hx of RSD and chronic cough presents with fall and resulting compression fracture. * T12 compression fracture -status post kyphoplasty on 08/11 -patient did not tolerate the brace -her pain has resolved * hypokalemia -electrolyte protocol initiated *acute hypoxemia/left lower lobe pna -blood cx no growth -procalcitonin at 0.25 which shows possible local bacterial infection -day #3 of azithromycin and ceftriaxone -Influenza is negative -Advair has helped * nausea -resolved * history of chronic cough, dysphagia and heartburn -follow up with pulmonology in the outpatient setting -possible GERD -status post colonoscopy for screening purposes, this was normal -status post upper GI with normal appearing esophagus with esophageal dilation * regional pain syndrome noted in the right upper extremity -resumed home meds which include clonazepam, Celebrex, Lyrica and baclofen * coronary artery disease disease -on aspirin, beta-sabrina and statin * plan. SNF today/ feeling much better Subjective: Carol is feeling better today. no complaints. Objective: Vital Signs Temp Pulse Resp BP Pulse Ox 35.9 C L 60 14 154/92 H 93 08/15/17 04:00 08/15/17 08:13 08/15/17 08:13 08/15/17 08:13 08/15/17 08:13 Laboratory Results 08/14/17 04:39 08/15/17 05:04 08/14/17 08/15/17 08/16/17 05:59 05:59 05:59 Intake Total 950 1400 Output Total 1200 1200 Balance -250 200 - Physical Exam Constitutional: no apparent distress, appears nourished, not in pain Eyes: PERRL Ears, Nose, Mouth, Throat: hearing normal Cardiovascular: regular rate and rhythym Respiratory: no respiratory distress Gastrointestinal: normoactive bowel sounds Skin: warm, normal color Musculoskeletal: full muscle strength Neurologic: AAOx3 Psychiatric: interacting appropriately ICD10 Worksheet Patient Problems: Problems Problem Status Onset Nausea & vomiting Acute Thoracic compression fracture Acute
[2017-08-15 11:41] VITALS: PULSE 68; RESP 16; TEMP 97.5; O2SAT 92
--- NOTE | 2017-08-15 11:46 | PDIAF ---
- Diagnosis Diagnosis: T12 compression fx, pneumonia Code Status: Full Code - Medication Management Discharge Medications: Medications to Continue on Transfer Baclofen [Baclofen 10 mg (*)] 20 mg PO HS 06/04/17 [Last Taken 08/09/17] Hydrochlorothiazide [HCTZ (*)] 25 mg PO HS 06/04/17 [Last Taken 08/09/17] Metoprolol Succinate Xr [Toprol Xl 50 mg (*)] 50 mg PO BID 06/04/17 [Last Taken 08/10/17 09:00] Montelukast Sodium [Singulair 10 mg (*)] 10 mg PO HS 06/04/17 [Last Taken ] celeCOXIB [Celebrex (*)] 400 mg PO HS 06/04/17 [Last Taken 08/09/17] clonazePAM [klonoPIN (*)] 1 mg PO HS 06/04/17 [Last Taken 08/09/17] traZODone [traZODONE 50MG (*)] 100 mg PO HS 06/04/17 [Last Taken 08/09/17] Fluticasone Nasal [Flonase Nasal Rudolph] 2 sprays NASAL HS 08/10/17 [Last Taken 08/09/17] Atorvastatin Calcium [Lipitor 20 mg (*)] 20 mg PO HS 08/11/17 [Last Taken ] Cetirizine [ZyrTEC 10 mg (*)] 10 mg PO HS 08/11/17 [Last Taken 08/09/17] Cholecalciferol Vit D3 [Vitamin D3 (*)] 1,000 units PO HS 08/11/17 [Last Taken 08/09/17] Estradiol [VAGIFEM] 10 mcg VG SUWE 08/11/17 [Last Taken 08/06/17] Lidocaine 5% [Lidoderm 5% Patch (*)] 1 ea TD HS 08/11/17 [Last Taken 08/09/17] Multivitamins [Multivitamin (*)] 1 each PO HS 08/11/17 [Last Taken 08/09/17] Pregabalin [Lyrica 75mg (*)] 150 mg PO HS 08/11/17 [Last Taken 08/09/17] Albuterol Hfa Anes Only [Proair Hfa Icu (*)] 2 puffs IH QID PRN #1 i 08/15/17 [Last Taken Unknown] Azithromycin 250 mg PO DAILY #4 tablet 08/15/17 [Last Taken Unknown] Cefuroxime Axetil [Ceftin (*)] 250 mg PO BID #14 tab 08/15/17 [Last Taken Unknown] Fluticasone/Salmeter 250/50Mcg [Advair 250/50 (*)] 1 puffs IH BID disk [Last Taken Unknown] Pantoprazole Sodium [Protonix 40mg (*)] 40 mg PO DAILY tab 08/15/17 [Last Taken Unknown] Polyethylene Glycol 3350 [Miralax 17 gm (*)] 17 gm PO DAILY pkt 08/15/17 [Last Taken Unknown] Sennosides/Docusate Sodium [Senokot-S] 1 - 2 tab PO BID tab 08/15/17 [Last Taken Unknown] Discharge Medications: Refer to the Discharge Home Medication list for PRN reason. - Orders Services needed: Physical Therapy, Occupational Therapy Diet Recommendation: no restrictions on diet Diet Texture: Regular Texture Diet Additional: antibiotics x 4 more days/ f/u with Dr Gilmer Ocampo in next one to two weeks. - Labs/Radiology Imaging Orders: repeat chestxray in 6 weeks for f/u care - Follow Up Care Current Providers and Referrals: Patient,NotPresent [Unknown] - As per Instructions Jabari Ocampo MD [Medical Doctor] -
[2017-08-15] MEDS ORDERED: HYDROCHLOROTHIAZIDE 25 MG TAB PO SCH (12:45)
--- NOTE | 2017-08-15 13:00 | ASMTCMCOM ---
CM Note CM Note Notes: Pt ready for DC. [facility] set up W/C transport with [place] for 2:00. Final orders faxed. Family notified. Date Signed: 08/15/2017 12:59 PM Electronically Signed By:Tania Simon LCSW
[2017-08-15 13:56] VITALS: BP 164/103
--- NOTE | 2017-08-15 14:33 | ASDISCHSUM ---
Discharge Information Plan Status:SNF Medically Cleared to Leave: Discharge Date:08/15/2017 02:09 PM D/C Disposition:Detention Facility ADT D/C Disposition:Detention Facility Projected Discharge Date:08/15/2017 11:00 AM Transportation at D/C: Discharge Delay Reason: Follow-Up Date:08/15/2017 11:00 AM Discharge Slot: Final Diagnosis: Placement Information Referral Type:*Jail/SNF Referral ID:[id number] Provider Name:[facility] Address 1:[address] Address 2: City:[place] Selection Factors: State:[place] Patient Contact Information Contact Name:MARCELLO Relationship:Daughter Address:[address] Work Phone: [facility]:[place] Alternate Phone: State/Zip Code:[place] [address] Email: Financial Information Financial Class: Primary Plan Desc:MEDICARE INPATIENT Primary Plan Number:[id number] Secondary Plan Desc:[facility] Secondary Plan Number:[id number] Assessment Information [facility] CM Progress Note CM Note CM Note Notes: Pt admitted after al fall - sustained T12 compression fx. S/p colonoscopy (planned) today. OT has cleared. PT is still pending. CM to follow for any d/c needs. Date Signed: 08/11/2017 05:00 PM Electronically Signed By:PACO Hernandez [facility] CM Progress Note CM Note CM Note Notes: PT and hospitalist Andrea [facility], pt and [facility] [place] [phone] ([facility]) agreeable and request referral to [facility] who accept pt. Pt likely to d/c tomorrow. Pt moved to . Date Signed: 08/13/2017 02:14 PM Electronically Signed By:PACO Landaverde [facility] CM Progress Note CM Note CM Note Notes: Pt ready for DC. [facility] set up W/C transport with [employer] for 2:00. Final orders faxed. Family notified. Date Signed: 08/15/2017 12:59 PM Electronically Signed By:Tania Simon LCSW Intervention Information Intervention Type:*GONZALEZ-Signed Date of Service:08/11/2017 09:22 AM Patient Type:Observation Staff Member:Isabel Gonzalez Hours: Discipline: Severity: Comment: Intervention Type:*IM-Signed Date of Service:08/15/2017 12:41 PM Patient Type:Inpatient Staff Member:Isabel Gonzalez Hours: Discipline: Severity: Comment:
--- NOTE | 2017-08-15 16:27 | GDS ---
[f rep st] DISCHARGE SUMMARY DISCHARGE DIAGNOSES: 1. T12 compression fracture. 2. Hypokalemia. 3. Acute hypoxemia with associated left lower lobe pneumonia. 4. History of chronic cough, dysphagia, and heartburn. 5. Regional pain syndrome in her right upper extremity. 6. Coronary artery disease. CONSULTATIONS: 1. Dr. Freitas. 2. Dr. Guicho Sandra. BRIEF HISTORY: The patient is a 61-year-old woman with history of chronic cough , coronary artery disease, and regional pain syndrome, who had back pain after a fall. She was at home undergoing a colonoscopy prep which led to nausea and vomiting. She slipped on her vomit and fell on her back and experienced severe back pain. She was seen and evaluated by Dr. Sandra and had a kyphoplasty on 08/11. She was also supposed to have a colonoscopy in the outpatient setting, but was unable to complete this. During her stay, she had an EGD and colonoscopy. Recommendations for a colonoscopy in 10 years. After getting the kyphoplasty and the evaluation by the lodging manager, the patient developed severe nausea and vomiting for several days. This improved with time. She also has had this chronic cough, and it was noted that she had a left lower lobe pneumonia. She was treated with antibiotics. Her blood cultures did not show any growth. She is markedly improved today. She will go to a assisted facility for rehab. HOSPITAL COURSE PER PROBLEM: 1. T12 compression fracture. She is status post kyphoplasty on 08/11. Her pain is resolved. 2. Hypokalemia. Electrolyte protocol. 3. Acute hypoxemia secondary to left lower lobe pneumonia. She had a procalcitonin level that was 0.25, which showed a possible local bacterial infection. She was treated with antibiotics. She is markedly improved. 4. Nausea, resolved. 5. History of chronic cough, dysphagia, and heartburn. She is status post upper GI with normal-appearing esophagus. Her colonoscopy was normal, possibly gastroesophageal reflux disease. I kept her on a PPI. She will get further followup with Dr. Ocampo. 6. Regional pain syndrome. This is noted on the right upper extremity. Resumed her clonazepam, Celebrex, Klor-Con, baclofen. 7. Coronary artery disease. She is on beta sabrina, aspirin, and statin therapy. CONDITION AT DISCHARGE: Stable. Blood pressure is 154/92, O2 sats on 1 L 92%, respiratory rate is 14, pulse is 60, temperature is 35.9 Celsius. MEDICATIONS AT DISCHARGE: Please see the EMR. DISCHARGE INSTRUCTIONS: 1. To follow up with Dr. Jabari Ocampo in regard to her chronic cough. 2. To continue antibiotics as instructed. 3. If she develops fever, chills, chest pain, or shortness of breath, return to the ER. 4. To get a chest x-ray in 6 weeks to be sure of resolution of her pneumonia. Greater than 30 minutes discharging and coordinating patient's care. /[id number]/MODL MTDD
[2017-08-15] MEDS ORDERED: SENNOSIDES/DOCUSATE SODIUM TAB PO SCH (21:00)
== END 2017-08-15 14:09 | DRG 515 ==
LOC: EDUNIT# → EDBD → F3N 08-11 01:50 → OBSVTOIN 08-11 14:22 → F1N 08-13 10:46
PROVIDERS: ADMIT Student in an Organized Health Care Education/Training Program; ATTEND Student in an Organized Health Care Education/Training Program
PROC: 0DJD8ZZ Inspection of Lower Intestinal Tract, Via Natural or Artificial Opening Endoscopic (ICD-10-PCS; 2017-08-11)
PROC: 0D728ZZ Dilation of Middle Esophagus, Via Natural or Artificial Opening Endoscopic (ICD-10-PCS; 2017-08-11)
PROC: 0DB68ZX Excision of Stomach, Via Natural or Artificial Opening Endoscopic, Diagnostic (ICD-10-PCS; 2017-08-11)
PROC: 0DB28ZX Excision of Middle Esophagus, Via Natural or Artificial Opening Endoscopic, Diagnostic (ICD-10-PCS; 2017-08-11)
PROC: 0PS43ZZ Reposition Thoracic Vertebra, Percutaneous Approach (ICD-10-PCS; principal; 2017-08-11 14:30)
PROC: 0PU43JZ Supplement Thoracic Vertebra with Synthetic Substitute, Percutaneous Approach (ICD-10-PCS; principal; 2017-08-11 14:30)
DX: S22.089A Unspecified fracture of T11-T12 vertebra, initial encounter for closed fracture (principal); W01.0XXA Fall on same level from slipping, tripping and stumbling without subsequent striking against object, initial encounter; Y92.000 Kitchen of unspecified non-institutional (private) residence as the place of occurrence of the external cause; J18.9 Pneumonia, unspecified organism; R09.02 Hypoxemia; E87.6 Hypokalemia; Z12.11 Encounter for screening for malignant neoplasm of colon; K29.70 Gastritis, unspecified, without bleeding; E03.9 Hypothyroidism, unspecified; I25.10 Atherosclerotic heart disease of native coronary artery without angina pectoris; I25.2 Old myocardial infarction; Z96.653 Presence of artificial knee joint, bilateral; Z83.71 Family history of colonic polyps
CPT/HCPCS: 96374; 97116-GP; 97162-GP; 97166-GO; 97530-GO; 97530-GP; 97535-GO; G0008; G8978-GP-CJ; G8979-GP-CI; G8987-GO-CL; G8988-GO-CI; J0456; J0696; J1170; J1650; J2001; J2060; J2250; J2405; J2550; J2704; J3010

== ENCOUNTER 2017-08-15 23:49 | Inpatient (IN) | payer OTHER ==
--- NOTE | 2017-08-15 23:56 | EDPHY ---
H & P HPI/ROS: HPI CHIEF COMPLAINT: Chest tightness, headache, hypertension, discharge from hospital today. HISTORY OF PRESENT ILLNESS: This patient is 61-year-old female, she has significant past medical history for hypertension, she was just in the hospital vertebral body fracture status post kyphoplasty additionally left lower lobe pneumonia and was intubated twice. She presents back to the emergency room this evening with hypertension headache and chest tightness. Patient states she was discharged on oxygen 1 L. She still feels more short of breath and like the oxygen turned up. Additionally she was requesting a DuoNeb breathing treatment upon arrival. Her main complaint is chest tightness and pressure in her chest additionally she complains of a global throbbing headache. She denies any vomiting. She states her blood pressures normally normal 120 systolic however it is 190s your systolic. Past Medical History:hypokalemia, coronary artery disease Past Surgical History: T12 compression fracture, recent kyphoplasty on August 11, Social History: Denies daily use drugs alcohol tobacco products Family History: Noncontributory. ROS REVIEW OF SYSTEMS: A comprehensive 10 point review of systems is otherwise negative aside from elements mentioned in the history of present illness. Exam Constitutional appears well nontoxic, triage nursing summary reviewed, vital signs reviewed, awake/alert. Vital signs not hypertensive at triage. Eyes normal conjunctivae and sclera, EOMI, PERRLA. HENT normal inspection, atraumatic, moist mucus membranes, no epistaxis, neck supple/ no meningismus, no raccoon eyes. Respiratory clear to auscultation bilaterally, normal breath sounds, no respiratory distress, no wheezing. Cardiovascular rate normal, regular rhythm, no murmur, no edema, distal pulses normal. Gastrointestinal soft, non-tender, no rebound, no guarding, normal bowel sounds, no distension, no pulsatile mass. Genitourinary no CVA tenderness. Musculoskeletal no midline vertebral tenderness, full range of motion, no calf swelling, no tenderness of extremities, no meningismus, good pulses, neurovascularly intact. Skin pink, warm, & dry, no rash, skin atraumatic. Neurologic awake, alert and oriented x 3, AAOx3, moves all 4 extremities equally, motor intact, sensory intact, CN II-XII intact, normal cerebellar, normal vision, normal speech. Psychiatric normal mood/affect. Heme/Lymph/Immune no lymphadenopathy. 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 Monitor blood pressure closely. Re-evaluation: EKG interpretation by me on record in [employer] system. Impression time of EKG 0015 this is sinus rhythm rate of 75. T-wave abnormalities noted V1 V2 V3. Similar to previous EKG dated 08/11/2017 however T-wave abnormalities on this EKG is more prominent. ED x-ray chest one view left lower lobe infiltrate. Otherwise unremarkable. 0147: D-dimer noted to be positive. Will proceed with CT angiogram of chest rule out pulmonary emboli. Patient agreeable for this plan. Distally given her hypertension, shortness of breath, recent hospitalization so been admitted back to the hospital for observation. Reason for admission hypertension, in the setting of chest discomfort, in the setting of shortness of breath left lower lobe pneumonia. 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, bilateral TKRs, c sections - Social History Smoking Status: Never smoked Constitutional: Initial Vital Signs O2 Sat (%) 93 08/15/17 23:57 O2 Delivery Mode Room Air O2 (L/minute) 2 Allergies/Adverse Reactions: No Known Allergies Allergy (Verified 08/16/17 00:04) Home Medications: Medication Instructions Recorded Baclofen [Baclofen 10 mg (*)] 20 mg PO HS 06/04/17 Hydrochlorothiazide [HCTZ (*)] 25 mg PO HS 06/04/17 Metoprolol Succinate Xr [Toprol Xl 50 mg PO BID 06/04/17 50 mg (*)] Montelukast Sodium [Singulair 10 10 mg PO HS 06/04/17 mg (*)] celeCOXIB [Celebrex (*)] 400 mg PO HS 06/04/17 clonazePAM [klonoPIN (*)] 1 mg PO HS 06/04/17 traZODone [traZODONE 50MG (*)] 100 mg PO HS 06/04/17 Fluticasone Nasal [Flonase Nasal 2 sprays NASAL HS 08/10/17 [place]] Atorvastatin Calcium [Lipitor 20 20 mg PO HS 08/11/17 mg (*)] Cetirizine [ZyrTEC 10 mg (*)] 10 mg PO HS 08/11/17 Cholecalciferol Vit D3 [Vitamin D3 1,000 units PO HS 08/11/17 (*)] Estradiol [VAGIFEM] 10 mcg VG SUWE 08/11/17 Lidocaine 5% [Lidoderm 5% Patch 1 ea TD HS 08/11/17 (*)] Multivitamins [Multivitamin (*)] 1 each PO HS 08/11/17 Pregabalin [Lyrica 75mg (*)] 150 mg PO HS 08/11/17 Albuterol Hfa Anes Only [Proair 2 puffs IH QID PRN #1 mdi 08/15/17 Hfa Icu (*)] Azithromycin 250 mg PO DAILY #4 tablet 08/15/17 Cefuroxime Axetil [Ceftin (*)] 250 mg PO BID #14 tab 08/15/17 Fluticasone/Salmeter 250/50Mcg 1 puffs IH BID disk 08/15/17 [Advair 250/50 (*)] Pantoprazole Sodium [Protonix 40mg 40 mg PO DAILY tab 08/15/17 (*)] Polyethylene Glycol 3350 [Miralax 17 gm PO DAILY pkt 08/15/17 17 gm (*)] Sennosides/Docusate Sodium 1 - 2 tab PO BID tab 08/15/17 [Senokot-S] Medical Decision Making - Data Points Laboratory Results: Laboratory Results 08/16/17 06:15 08/17/17 04:08 Medications Given: Acetaminophen (Tylenol) 650 mg PO Q4HRS PRN PRN Reason: Pain, Mild/Fever, Can Take PO Stop: 02/12/18 02:41 Last Admin: 08/17/17 06:33 Dose: 650 mg Albuterol/Ipratropium (Duoneb) 3 ml IH Q6HRS [facility]IS[facility] Stop: 04/19/18 06:09 Last Admin: 08/18/17 04:58 Dose: 3 ml Atorvastatin Calcium (Lipitor) 20 mg PO [facility] Stop: 02/12/18 20:59 Last Admin: 08/17/17 22:19 Dose: 20 mg Baclofen (Baclofen) 20 mg PO HS [facility] Stop: 02/12/18 20:59 Last Admin: 08/17/17 22:18 Dose: 20 mg Benzonatate (Tessalon Pearles) 200 mg PO TID PRN PRN Reason: Cough, Mild Stop: 02/12/18 11:18 Last Admin: 08/17/17 22:20 Dose: 200 mg Celecoxib (Celebrex) 400 mg PO [facility] Stop: 02/12/18 20:59 Last Admin: 08/17/17 22:19 Dose: 400 mg Cetirizine HCl (Zyrtec) 10 mg PO [facility] Stop: 02/12/18 20:59 Last Admin: 08/17/17 22:18 Dose: 10 mg Cholecalciferol (Vitamin D) 1,000 units PO [facility] Stop: 02/12/18 20:59 Last Admin: 08/17/17 22:18 Dose: 1,000 units Clonazepam (Klonopin) 1 mg PO [facility] Stop: 02/12/18 20:59 Last Admin: 08/17/17 22:18 Dose: 1 mg Fluticasone Propionate (Flonase Nasal [place]) 2 sprays [facility] Stop: 02/12/18 20:59 Last Admin: 08/17/17 09:59 Dose: 2 spray Guaifenesin (Mucinex) 1,200 mg PO BID [facility] Stop: 02/12/18 11:29 Last Admin: 08/17/17 22:20 Dose: 1,200 mg Guaifenesin/Codeine Phosphate (Robitussin Ac) 10 ml PO Q6HRS PRN PRN Reason: Cough, Moderate Stop: 02/12/18 11:18 Last Admin: 08/18/17 04:24 Dose: 10 ml Levofloxacin (Levaquin) 750 mg PO DAILY10 [facility] Stop: 09/15/17 13:29 Last Admin: 08/17/17 09:06 Dose: 750 mg Lidocaine (Lidoderm 5%) 1 ea TD HS [facility] Stop: 02/12/18 20:59 Last Admin: 08/17/17 22:17 Dose: 1 ea Lorazepam (Ativan) 0.5 - 1 mg PO Q8HRS PRN PRN Reason: Anxiety, Able to Take PO Stop: 02/12/18 02:41 Last Admin: 08/16/17 04:11 Dose: 1 mg Miscellaneous Medication (Estradiol [Vagifem]) 10 mcg VG SuWe@2100 [facility] Stop: 02/13/18 12:59 Last Admin: 08/17/17 22:32 Dose: 1 alicia Montelukast Sodium (Singulair) 10 mg PO HS [facility] Stop: 02/12/18 20:59 Last Admin: 08/17/17 22:37 Dose: 10 mg Multivitamins (Tab-A-Terri) 1 each PO HS [facility] Stop: 02/12/18 20:59 Last Admin: 08/17/17 22:19 Dose: 1 each Nitroglycerin (Nitrostat) 0.4 mg SL Q5M PRN PRN Reason: Chest Pain Stop: 02/12/18 03:16 Last Admin: 08/16/17 04:10 Dose: 0.4 mg Ondansetron HCl (Zofran) 4 mg IVP Q4HRS PRN PRN Reason: Nausea/Vomiting, Can't Take PO Stop: 02/12/18 02:41 Last Admin: 08/16/17 09:29 Dose: 4 mg Pantoprazole Sodium (Protonix) 40 mg PO DAILY [facility] Stop: 02/12/18 11:29 Last Admin: 08/17/17 08:58 Dose: 40 mg Polyethylene Glycol (Miralax) 17 gm PO DAILY [facility] Stop: 02/13/18 08:59 Last Admin: 08/17/17 08:59 Dose: 17 gm Potassium Chloride (Klor-Con) 10 meq PO DAILY [facility] Stop: 02/13/18 08:59 Last Admin: 08/17/17 08:58 Dose: 10 meq Prednisone (Prednisone) 40 mg PO DAILY [facility] Stop: 02/12/18 08:59 Last Admin: 08/17/17 08:58 Dose: 40 mg Pregabalin (Lyrica) 150 mg PO HS [facility] Stop: 02/12/18 20:59 Last Admin: 08/17/17 22:19 Dose: 150 mg Fluticasone/Salmeterol (Advair) 1 puffs IH BID [facility] Stop: 02/12/18 11:29 Last Admin: 08/17/17 21:28 Dose: 1 inh Trazodone HCl (Trazodone) 100 mg PO HS [facility] Stop: 02/12/18 20:59 Last Admin: 08/17/17 22:18 Dose: 100 mg Discontinued Medications Albuterol/Ipratropium (Duoneb) 3 ml IH EDNOW ONE Stop: 08/16/17 00:12 Last Admin: 08/16/17 00:20 Dose: 3 ml Furosemide (Lasix Injection) 20 mg IVP ONCE ONE Stop: 08/16/17 04:04 Last Admin: 08/16/17 04:18 Dose: 20 mg Furosemide (Lasix Injection) 40 mg IVP BID@0900,1500 [facility] Stop: 02/12/18 08:59 Last Admin: 08/17/17 08:58 Dose: 40 mg Furosemide (Lasix Injection) 60 mg IVP BID@0900,1500 [facility] Stop: 02/12/18 08:59 Last Admin: 08/17/17 15:24 Dose: 60 mg Furosemide (Lasix Injection) 20 mg IV ONCE ONE Stop: 08/17/17 15:46 Last Admin: 08/17/17 15:39 Dose: 20 mg Hydromorphone HCl (Dilaudid) 1 mg IVP EDNOW ONE Stop: 08/16/17 00:12 Last Admin: 08/16/17 00:24 Dose: 1 mg Sodium Chloride (Ns) 1,000 mls @ 0 mls/hr IV EDNOW ONE; Wide Open PRN Reason: Protocol Stop: 08/16/17 00:11 Last Admin: 08/16/17 00:25 Dose: 1,000 mls Levofloxacin/Dextrose (Levaquin 750 Mg (Premix)) 150 mls @ 100 mls/hr IV DAILY [facility] PRN Reason: Protocol Stop: 09/15/17 11:59 Last Admin: 08/16/17 15:46 Dose: Not Given Metoprolol Succinate (Toprol Xl) 50 mg PO BID [facility] Stop: 02/12/18 11:29 Last Admin: 08/17/17 08:59 Dose: 50 mg Miscellaneous Medication (Estradiol [Vagifem]) 10 mcg VG SUWE [facility] Stop: 02/13/18 12:59 Last Admin: 08/17/17 15:25 Dose: Not Given Departure - Departure Disposition: [facility] Acute Clinical Impression: Shortness of breath Hypertension Qualifiers: Hypertension type: unspecified Qualified Code(s): I10 - Essential (primary) hypertension Condition: Fair
[2017-08-16] MEDS ORDERED: NS 1,000 ML IV ONE (00:10)
[2017-08-16] MEDS ORDERED: IPRATROPIUM/ALBUTEROL 3 ML DEYVIAL IH ONE (00:11)
[2017-08-16] MEDS ORDERED: HYDROmorphONE/DILAUDID 1 MG/ML INJ IVP ONE (00:11)
--- NOTE | 2017-08-16 00:17 | CPEKG ---
Heart Rate: 75 RR Interval: 800 P-R Interval: 144 QRSD Interval: 80 QT Interval: 388 QTC Interval: 434 P [place]: 42 QRS [place]: -3 T Wave [place]: 15 EKG Severity - BORDERLINE ECG - EKG Impression: SINUS RHYTHM EKG Impression: LOW VOLTAGE IN FRONTAL LEADS Electronically Signed By: Catrina Iyer 18-Aug-2017 05:40:03
[2017-08-16 00:53] LABS: % IMMATURE GRANULYOCYTES 0.9 % (0.0-1.1); ABSOLUTE IMMATURE GRANULOCYTES 0.05 10^3/uL (0.00-0.10); ADD DIFF? NO; ADD MORPH? NO; ADD SCAN? NO; ATYPICAL LYMPHOCYTE FLAG 20 (0-99); FRAGMENT RBC FLAG 0 (0-99); HEMATOCRIT 34.3 % (38.0-47.0); LEFT SHIFT FLG 10 (0-99); LIPEMIA HEMOLYSIS FLAG 90 (0-99); MEAN CELL HEMOGLOBIN 32.2 pg (27.9-34.1); MEAN PLATELET VOLUME 10.2 fL (8.7-11.7); PLATELET CLUMPS FLAG 0 (0-99); PLATELET COUNT 207 10^3/uL (150-400); RED BLOOD CELL COUNT 3.73 10^6/uL (4.18-5.33); RED CELL DISTRIBUTION WIDTH 12.7 % (11.5-15.2)
[2017-08-16 01:07] LABS: INR 0.97 (0.83-1.16); PROTIME(PATIENT) 12.8 SEC (12.0-15.0)
[2017-08-16 01:08] LABS: ALANINE AMINOTRANSFERASE 34 IU/L (9-52); ALBUMIN 3.5 g/dL (3.5-5.0); ALKALINE PHOSPHATASE 79 IU/L (38-126); ANION GAP 11 mEq/L (8-16); APTT 29.8 SEC (23.0-38.0); ASPARTATE AMINOTRANSFERASE 31 IU/L (14-46); BILIRUBIN,TOTAL 0.9 mg/dL (0.1-1.4); BILIRUBIN-CONJUGATED 0.2 mg/dL (0.0-0.5); BILIRUBIN-UNCONJUGATED 0.7 mg/dL (0.0-1.1); CALCIUM 9.3 mg/dL (8.5-10.4); CARBON DIOXIDE 28 mEq/l (22-31); CHLORIDE 101 mEq/L (97-110); CREATININE 0.7 mg/dL (0.6-1.0); GLOMERULAR FILTRATION RATE > 60; GLUCOSE 94 mg/dL (70-100); MAGNESIUM 1.9 mg/dL (1.6-2.3); POTASSIUM 3.9 mEq/L (3.5-5.2); SODIUM 140 mEq/L (134-144); TOTAL PROTEIN 6.1 g/dL (6.3-8.2)
[2017-08-16 01:19] LABS: CREATINE KINASE-MB FRACTION 0.52 ng/mL (0.00-3.19); TROPONIN I 0.023 ng/mL (0.000-0.034)
[2017-08-16] MEDS ORDERED: IOPAMIDOL (ISOVUE 370) 100 ML BTL IV ONE (01:28)
[2017-08-16] MEDS ORDERED: LORazepam 0.5 MG TAB PO PRN (02:42)
[2017-08-16] MEDS ORDERED: HYDROCODONE/APAP 5/325 TAB PO PRN (02:42)
[2017-08-16] MEDS ORDERED: NS 1,000 ML IV SCH (02:45)
[2017-08-16] MEDS ORDERED: hydrALAZINE 20 MG/ML VIAL IVP PRN (02:46)
[2017-08-16] MEDS ORDERED: NITROGLYCERIN 0.4 MG BTL SL PRN (03:17)
[2017-08-16] MEDS ORDERED: FUROSEMIDE 20 MG/2 ML VIAL IVP ONE (04:03)
[2017-08-16] MEDS: ONDANSETRON 4 MG/2 ML VIAL IVP PRN ×2 (04:35→09:29)
[2017-08-16] MEDS ORDERED: ALBUTEROL 3 ML DEYVIAL IH PRN (06:12)
[2017-08-16 06:45] LABS: % IMMATURE GRANULYOCYTES 0.6 % (0.0-1.1); ABSOLUTE IMMATURE GRANULOCYTES 0.03 10^3/uL (0.00-0.10); ADD DIFF? NO; ADD MORPH? NO; ADD SCAN? NO; ATYPICAL LYMPHOCYTE FLAG 20 (0-99); FRAGMENT RBC FLAG 0 (0-99); HEMATOCRIT 34.7 % (38.0-47.0); LEFT SHIFT FLG 0 (0-99); LIPEMIA HEMOLYSIS FLAG 90 (0-99); MEAN CELL HEMOGLOBIN 31.7 pg (27.9-34.1); MEAN CELL HEMOGLOBIN CONCENTR. 34.6 g/dL (32.4-36.7); MEAN CELL VOLUME 91.6 fL (81.5-99.8); MEAN PLATELET VOLUME 10.1 fL (8.7-11.7); PLATELET CLUMPS FLAG 0 (0-99); PLATELET COUNT 216 10^3/uL (150-400); RED BLOOD CELL COUNT 3.79 10^6/uL (4.18-5.33)
[2017-08-16 06:50] LABS: ANION GAP 12 mEq/L (8-16); CALCIUM 8.9 mg/dL (8.5-10.4); CARBON DIOXIDE 28 mEq/l (22-31); CHLORIDE 99 mEq/L (97-110); CREATININE 0.8 mg/dL (0.6-1.0); GLOMERULAR FILTRATION RATE > 60; GLUCOSE 106 mg/dL (70-100); MAGNESIUM 1.7 mg/dL (1.6-2.3); POTASSIUM 3.7 mEq/L (3.5-5.2); SODIUM 139 mEq/L (134-144)
[2017-08-16 07:02] LABS: CREATINE KINASE-MB FRACTION 0.37 ng/mL (0.00-3.19); TROPONIN I 0.025 ng/mL (0.000-0.034)
--- NOTE | 2017-08-16 07:56 | GHP ---
[f rep st] HISTORY AND PHYSICAL DATE OF ADMISSION: 08/16/2017 SOURCE: Patient provides history, appears fairly reliable. Her electronic medical record from [facility] discharge, day prior, was reviewed. CHIEF COMPLAINT: Shortness of breath and chest pain. 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 The patient was discharged yesterday morning and sent to custodial facility following her injury. Shortly after she arrived to the facility, patient reports that she b hugo to feel more short of breath, with her baseline persistent cough. The patient also reports sign ificant headache with hearing her pulses in her ears. The patient was concerned because her blood pr essures are not normally so elevated. She continued to have increasing chest pressure and shortness of breath. The patient denies any orthopnea. No significant increase in edema recently. The rashaun gomez called for an ambulance to transfer to the hospital. She says she could not breathe. She was note d to be with some increased work of breathing and anxiety. In the emergency department, patient rece ived nebulizer treatment, with temporary improvement of her symptoms. The patient's chest pressure i s described as left-sided, associated with attempts at inspiration. No squeezing or tightness report ed. No lower extremity edema. No orthopnea. REVIEW OF SYSTEMS: GENERAL: Negative for fevers or chills. SKIN: No rashes or sores. ENT: No co ngestion, sore throat. EYES: No acute changes in vision or ocular pain. CV: Patient with chest pain, as noted above in HPI. RESPIRATORY: Chronic cough that is nonproductive an d shortness of breath as noted above. GI: No nausea, vomiting. Patient has had significantly decreased appetite since her fall and her compressio n fracture. : No dysuria or hematuria. MUSCULOSKELETAL: Patient is complaining of back pain and right lateral to posterior head pain, resulting from contusion with her fall recently. NEURO: Elis ent denies any numbness, tingling. ALLERGIES: No known drug allergies. HOME MEDICATIONS: Trazodone 100 mg p.o. q.h.s., Klonopin 1 mg p.o. q.h.s., Celebrex 400 mg p.o. q.h. s., Senokot 1-2 tabs p.o. b.i.d., Lyrica 150 mg p.o. q.h.s., MiraLAX daily, Protonix 40 daily, multiv itamin daily, Singulair 10 mg at h.s., metoprolol-XL 50 mg p.o. b.i.d., lidocaine patch 5% applied to pically at h.s., hydrochlorothiazide 25 mg p.o. q.h.s., fluticasone, Advair 250/50. Fluticasone nasa l spray 2 sprays nasally at h.s., estradiol 10 mg vaginal suppository Friday and Friday, vitamin D 1000 units p.o. at h.s., cholecalciferol 1000 units p.o. at h.s., Zyrtec 2 mg p.o. at h.s. Ceftin, the patient reports completion of antibiotic therapy. Baclofen 10 mg p.o. at h.s., azithromycin 250 mg p.o. daily, atorvastatin 20 mg p.o. at h.s., albuter ol HFA 2 puffs inhaled q.i.d. p.r.n. PAST MEDICAL HISTORY: 1. Remote asthma. 2. Seasonal allergies. 3. Recent compression fracture, T12, status post kyphoplasty. 4. Chronic pain. 5. RSD in the right arm. 6. Right leg slightly weaker than the left. History of DVT in the left leg. 7. History of PVC and PACs. 8. History of coronary artery disease, nonocclusive disease, on medical management, with history of CA. 9. Pneumonia, with history of intubation. PAST SURGICAL HISTORY: Significant for kyphoplasty, , cardiac cath, bilateral total knee ar throplasty, bronchoscopy. FAMILY HISTORY: Father with pancreatic cancer. Mother with history of DVT and vulvar cancer. No kn own family history of CAD or CHF. SOCIAL HISTORY: Patient lives alone. She does not smoke, drink, or do drugs. Currently, she was to be admitted to one of the local nursing homes, but returned to the ER. CODE STATUS: Is full at this time. PHYSICAL EXAM: VITAL SIGNS: In the emergency department, blood pressure 198/106, heart rate 73, res piratory rate 16, O2 sat 93% on 2 L by nasal cannula, temperature 37.3. Current vitals: Blood press ure 123/80, heart rate 72, respiratory rate 13, O2 on nasal cannula, temperature 36.8. GENERAL: No acute distress, pleasant, adult female, appears slightly older than stated age, who is resting in bed comfortably. She does appear a little bit anxious, but she is cooperative and pleasant. HEAD: Nor mocephalic, atraumatic. EYES: Extraocular muscles are intact. Pupils equal, round, reactive to lig ht bilaterally and symmetric. No scleral icterus, conjunctival injection. ENT: Mucous membranes ar e moist. No nasal discharge. NECK: Supple. Trachea midline. CV: Regular rate and rhythm. No murmurs, rubs, or gallops. HEART: Sounds slightly distant secondary to body habitus. No chest wall tenderness to palpation. RESPIRATORY: Patient with diminished lung sounds at the bases, with some crackling. No wheezes or rhonchi appreciated. ABDOMEN: Obese, soft, nontender to palpation. No rebound, guarding , or masses appreciated. EXTREMITIES: No cyanosis, clubbing, or edema appreciated. NEURO: Cranial nerves grossly nonfocal. No facial drooping. Moves all extremities with equal strength. PSYCH: The patient does appear a l ittle bit anxious, particularly with concerns to finalizing the diagnosis for her issues. LABORATORY STUDIES: WBC is 5.72, H and H 12.0, 34.3, MCV of 92.0. PT is 12.8, INR 0.97, PTT is 29.8 . D-dimer 4.89. Sodium is 140, potassium 3.9, chloride is 101, CO2 28, BUN 7, GFR greater than 60, glucose of 94, calcium 9.3, magnesium 1.9, total bili 0.9, conjugated bili 0.2, ALT is 34, AST is 31, alk phos is 79. CK is 149, CMV is 0.52, and troponin 0.023. Total protein 6.12. BTNP is 1320. Al bumin 3.56, lipase 121. Chest x-ray, image reviewed, report still pending, showing some cardiomegaly with perihilar prominenc e. CTA of the chest, limited ability to review images, but preliminary report from radiology was reviewe d, negative for PE, T12 kyphoplasty,. enlarged heart, trace pericardial effusion, with small bilatera l pleural effusions, with bilateral lobe infiltrates consistent with pneumonia or airway disease, wit h low-grade CHF not be excluded. Stable 17 mm right lobe with cyst and small gallstones. ASSESSMENT AND PLAN: A pleasant 61-year-old female, who presents following recent discharge with acu te worsening of dyspnea. 1. Shortness of breath. Possibly multifactorial. Echocardiogram has been ordered. The patient als o admits to a history of asthma and currently undergoing evaluation with pulmonology on an outpatient basis. The patient does report increased O2, concentration has been helpful, and single lower dose Lasix was provided to the patient with just minimal urine output. She has bilateral pleural effusion s present. We will further evaluate. 2. Chest pain. The patient does have a known history of coronary artery disease, which is medically managed. Unfortunately, she does have some EKG changes from previous EKGs, showing more prominent S T depression in the anterior leads. 3. Hypoxia, related likely to history of pleural effusions, and/or history of asthma. Supplemental oxygen as needed. We will increase nebulizer treatments availability and add steroids. 4. Pericardial effusion. Small on CT. We will order an echocardiogram for further evaluation. 5. T12 vertebroplasty, status post kyphoplasty. Supportive care. 6. Anemia, likely of chronic disease. H and H are increased from last hospital stay. 7. Fluid, electrolyte, nutrition. Continue IV fluids overnight and continue with some gentle hydrat ion. 8. Prophylaxis. SCDs and Lovenox. 9. Disposition: Patient will be admitted to observation on PCU for close cardiac monitoring. 10. Code status is full. /[id number]/MODL
--- NOTE | 2017-08-16 08:42 | CPEKG ---
Heart Rate: 69 RR Interval: 870 P-R Interval: 100 QRSD Interval: 82 QT Interval: 440 QTC Interval: 472 P [place]: -88 QRS [place]: 11 T Wave [place]: 33 EKG Severity - ABNORMAL ECG - EKG Impression: ECTOPIC ATRIAL RHYTHM EKG Impression: BORDERLINE R WAVE PROGRESSION, ANTERIOR LEADS EKG Impression: NONSPECIFIC T ABNORMALITIES, ANTERIOR LEADS Electronically Signed By: John Myers 16-Aug-2017 19:25:32
[2017-08-16] MEDS: IPRATROPIUM/ALBUTEROL 3 ML DEYVIAL IH SCH ×3 (09:00→18:07)
[2017-08-16] MEDS: FUROSEMIDE 40 MG/4 ML VIAL IVP SCH ×2 (09:29→15:34)
[2017-08-16] MEDS: predniSONE 20 MG TAB PO SCH (09:29)
[2017-08-16] MEDS: ACETAMINOPHEN 325 MG TAB PO PRN (09:29)
--- NOTE | 2017-08-16 10:59 | ECHO ---
[email or web address] [address] [address] Main: [phone] Fax: [email or web address] Echocardiogram Name: STANLEY VALDEZ MR#: [id number] Study Date: 08/16/2017 Study Time: 08:34 AM Date of : 1955 Age: 61 year(s) Height: 172.7 cm (68 in.) Weight: 74.84 kg (165 lb.) BSA: 1.88 m2 Gender: Female Examination: Echo Indication: Cardiac: dyspnea, Hypoxia, Pulmonary Edema, Chest Pain Image Quality: Adequate Contrast: Requested by: Sarah King BP: / Heart Rate: Rhythm: Indication: Cardiac: dyspnea, Hypoxia, Pulmonary Edema, Chest Pain Procedure 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 Normal global systolic LV function. EF is 62 %. No regional wall motion abnormality. Normal size right ventricle. Normal RV function. no significant valvular disease compared with prior study 07/18/2017 no significant change Measurements: Chambers Valvular Assessment AV/MV Valvular Assessment TV/PV Normal Normal Normal Name Value Range Name Value Range Name Value Range IVSd (2D): 1.2 cm (0.6 cm-1.1 AV meanP mmHg ( - ) PV Vmax: 0.83 m/s (0.6 m/s-0.9 cm) MV E Vmax: 0.59 m/s ( - ) m/s) LVDd (2D): 4.4 cm (3.9 cm-5.3 MV A Vmax: 0.77 m/s ( - ) PV PGmax: 3 mmHg ( - ) cm) MV E/A: 0.77 ( - ) LVDs (2D): 3.3 cm (2.1 cm-4 MV meanP mmHg ( - ) cm) LVPWd (2D): 0.8 cm ( - ) LVEF (BP): 62 % (>=55 %) Continued Measurements: Chambers Valvular Assessment AV/MV Name Value Name Value TAPSE: 1.6 cm MV DecTime: 269 m/s MV E' Septal: 0.05 m/s Patient: STANLEY VALDEZ Study Date: 08/16/2017 Page 1 of 2 08:34 AM MV E/E' Septal: 12.40 MV E/E' Lateral: 10.70 MV VTI: 22.90 cm Additional Vessels Name Value Ao Ascendin.2 cm Findings: Left Ventricle: Normal size left ventricle. Normal global systolic LV function. EF is 62 %. No regional wall motion abnormality. Right Ventricle: Normal size right ventricle. Normal RV function. Left Atrium: The left atrium is normal in size. Right Atrium: The right atrium is normal in size. Mitral Valve: The mitral valve is normal in appearance and function. There is no mitral valve regurgitation. No mitral stenosis is present. Aortic Valve: The aortic valve is normal in appearance and function. There is no aortic valve regurgitation. No aortic valve stenosis is present. Tricuspid Valve: The tricuspid valve is normal in appearance and function. There is no significant tricuspid valve regurgitation. Pulmonic Valve: Pulmonary valve not well visualized. Aorta: The aorta is normal. Pericardium: No pericardial effusion. There is pericardial fat. (No Signature Object) Patient: STANLEY VALDEZ Study Date: 08/16/2017 Page 2 of 2 08:34 AM [id number]
[2017-08-16] MEDS ORDERED: guaiFENesin/CODEINE PHOS 10 ML UDCUP PO PRN (11:19)
[2017-08-16] MEDS ORDERED: SENNOSIDES/DOCUSATE SODIUM TAB PO PRN (11:34)
[2017-08-16] MEDS: FLUTICASONE/SALMETER 250/50MCG DISKUS IH SCH ×3 (12:18→21:38)
[2017-08-16] MEDS: METOPROLOL SUCCINATE XR 50 MG TAB PO SCH ×2 (13:02→20:23)
[2017-08-16] MEDS: guaiFENesin 600 MG TAB.ER PO SCH ×2 (13:02→20:24)
[2017-08-16] MEDS: PANTOPRAZOLE SODIUM 40 MG TAB PO SCH (13:02)
--- NOTE | 2017-08-16 17:44 | HOSPPROG ---
Hospitalist Progress Note Assessment/Plan: Prolonged service in addition to the time spent original history and physical by Dr. King, direct patient care, [id number] with the patient and her daughter, at bedside, from 10:20 a.m. until 10:52 a.m., 32 minutes, spent addressing the following: -the patient is symptomatic shortness of breath and cough is most likely secondary to either pleural effusions and CHF exacerbation or incompletely treated pneumonia -physical exam reveals reduced air movement in the bilateral bases with positive a cough any bilaterally, inspiratory rhonchi in the mid posterior segments, no significant lower extremity edema, abdomen soft nontender nondistended, heart rhythm is regular without significant murmurs rubs or gallops, cranial nerves 2-12 are intact and tested, she is alert awake oriented x3, she does have ecchymoses in the postauricular area on the right -she continues to experience a headache as well as pain elicited by upward gaze , sustained trauma to the postauricular area but did not receive any head imaging on her previous hospitalization, will get head CT now to rule out intracranial hemorrhage -will get echocardiogram to further evaluate for possible CHF, will empirically diurese with IV Lasix 3 mg twice daily -will treat her possible pneumonia with a combination of prednisone, scheduled duo nebs, Mucinex, as needed antitussives, and adjustment of her antibiotics to include oral levofloxacin and discontinuation of her previous antibiotics -will order her for a regular diet at this time -her pleural effusions were too small for diagnostic or therapeutic draining -her systolic blood pressure appears to be well controlled at this time, will hold off on any p.r.n. medications and monitor Subjective: ongoing headache Objective: Vital Signs Temp Pulse Resp BP Pulse Ox 36.7 C 74 16 104/89 H 95 08/16/17 15:49 08/16/17 15:49 08/16/17 15:49 08/16/17 15:49 08/16/17 15:49 Microbiology 08/16/17 13:55 Respiratory Panel (PCR) - Final Nasal, Sinus - Swab No Organism Detected Laboratory Results 08/16/17 06:15 08/16/17 06:15 08/15/17 08/16/17 08/17/17 05:59 05:59 05:59 Intake Total 750 900 Output Total 600 1950 Balance 150 -1050 PT 12.8 SEC (12.0-15.0) 08/16/17 00:44 INR 0.97 (0.83-1.16) 08/16/17 00:44 ICD10 Worksheet Patient Problems: Problems Problem Status Onset Thoracic compression fracture Acute Nausea & vomiting Acute Hypertension Acute Shortness of breath Acute
[2017-08-16] MEDS: ATORVASTATIN CALCIUM 20 MG TAB PO SCH (20:23)
[2017-08-16] MEDS: MULTIVITAMINS 1 EACH TAB PO SCH (20:24)
[2017-08-16] MEDS: PREGABALIN 75 MG CAP PO SCH (20:25)
[2017-08-16] MEDS: traZODone 50 MG TAB PO SCH (20:25)
[2017-08-16] MEDS: BACLOFEN 10 MG TAB PO SCH (20:25)
[2017-08-16] MEDS: CHOLECALCIFEROL VIT D3 1,000 UNITS TAB PO SCH (20:26)
[2017-08-16] MEDS: MONTELUKAST SODIUM 10 MG TAB PO SCH (20:26)
[2017-08-16] MEDS: CETIRIZINE 10 MG TAB PO SCH (20:26)
[2017-08-16] MEDS: clonazePAM 1 MG TAB PO SCH (20:26)
[2017-08-16] MEDS: LIDOCAINE 5% 1 EA PATCH TD SCH (20:27)
[2017-08-16] MEDS: FLUTICASONE NASAL 120 SPRAYS/16 GM MDI EACHNARE SCH (21:34)
[2017-08-17] MEDS: IPRATROPIUM/ALBUTEROL 3 ML DEYVIAL IH SCH ×5 (00:12→21:33)
[2017-08-17 05:54] LABS: ANION GAP 16 mEq/L (8-16); CALCIUM 9.1 mg/dL (8.5-10.4); CARBON DIOXIDE 27 mEq/l (22-31); CHLORIDE 91 mEq/L (97-110); CREATININE 1.1 mg/dL (0.6-1.0); GLOMERULAR FILTRATION RATE 50; GLUCOSE 92 mg/dL (70-100); MAGNESIUM 1.8 mg/dL (1.6-2.3); POTASSIUM 3.8 mEq/L (3.5-5.2); SODIUM 134 mEq/L (134-144)
[2017-08-17] MEDS: ACETAMINOPHEN 325 MG TAB PO PRN (06:33)
[2017-08-17] MEDS: FUROSEMIDE 40 MG/4 ML VIAL IVP SCH (08:58)
[2017-08-17] MEDS: predniSONE 20 MG TAB PO SCH (08:58)
[2017-08-17] MEDS: POTASSIUM CL 10 MEQ TAB PO SCH (08:58)
[2017-08-17] MEDS: PANTOPRAZOLE SODIUM 40 MG TAB PO SCH (08:58)
[2017-08-17] MEDS: guaiFENesin 600 MG TAB.ER PO SCH ×2 (08:59→22:20)
[2017-08-17] MEDS: METOPROLOL SUCCINATE XR 50 MG TAB PO SCH (08:59)
[2017-08-17] MEDS: POLYETHYLENE GLYCOL 3350 17 GM PKT PO SCH (08:59)
[2017-08-17] MEDS: FLUTICASONE NASAL 120 SPRAYS/16 GM MDI EACHNARE SCH (09:59)
--- NOTE | 2017-08-17 10:42 | ASMTCMCOM ---
CM Note CM Note Notes: 08/17/2017 Case Management Note Met w/pt on and 08/17 to discuss returning to [facility]. Pt in agreement after speaking with daughter that [facility] is appropriate placement. Notified Lexis at [facility]. Faxed referral. Case Management d/c poc: return to [facility] when medically stable. Case Management to follow. Date Signed: 08/17/2017 10:41 AM Electronically Signed By:Lenka Umaña RN
[2017-08-17] MEDS: FLUTICASONE/SALMETER 250/50MCG DISKUS IH SCH ×2 (11:49→21:28)
[2017-08-17] MEDS ORDERED: Estradiol [Vagifem] 10 MCG VG SCH ×2 (13:00→21:00)
[2017-08-17] MEDS ORDERED: FUROSEMIDE 40 MG/4 ML VIAL IVP SCH (13:00)
[2017-08-17] MEDS ORDERED: FUROSEMIDE 20 MG/2 ML VIAL IV ONE (15:45)
--- NOTE | 2017-08-17 16:36 | HOSPPROG ---
Hospitalist Progress Note Assessment/Plan: Assessment: 61-year-old female presents with acute pleural effusions and acute diastolic congestive heart failure exacerbation Plan: # Acute diastolic CHF exacerbation. New problem, further w/u indicated. Evidenced by acute pleural effusions/pulm edema on chest CT (personally interpreted), elevated BNP, Echo w/ diastolic dysfunction and preserved EF, likely exacerbated by recent hospitalization/procedure - remains short of breath/hypoxic w/ ambulation, poor response to current dose of IV lasix, increase this afternoon to 60mg IV bid - monitor strict I/O/weights - cont supp K w/ lyte monitoring - cont supp o2 - get lexiscan stress test to r/o ischemia as cause # Cough. Chronic, reviewed outside records including 05/28/[address] Gilmer Ocampo, reports extensive outpt pulm w/u w/o clearly identifiable cause, considers that it could be a somatic symptom related to regional pain syndrome, recent bronch unrevealing - patient will likely continue to have cough throughout stay and at discharge, should NOT be readmitted for eval, once CHF has been stabilized - PRN anti-tussive - cont home Rx # Chronic pain w/ continuous opiate dependency. Cont home Rx # Possible Pneumonia. Potentially partially tx and lingering w/ marginally elevated but downtrending PCT at 0.1 - adjusted Abx to Levoflox, D#2/5 - pred to hasten symptomatic improvement, D#2/5 # HTN. Chronic, hold metoprolol while diuresing # Headache. Resolved, HCT w/o ICH Diet. Regular as lexie, smoothie/ensure Code. Full PPx. High risk, lovenox 40 Dispo. ADD uncertain, upgrade to inpatient admission status for further diagnostic w/u of new dx dCHF w/ nuc stress, increasing IV lasix requirements, ongoing hypoxia. Subjective: patient feeling more fatigued, worse malaise, short of breath w/ ambulation Objective: Vital Signs Temp Pulse Resp BP Pulse Ox 36.3 C 77 20 119/64 95 08/17/17 15:40 08/17/17 15:40 08/17/17 15:40 08/17/17 15:40 08/17/17 15:40 Microbiology 08/16/17 13:55 Respiratory Panel (PCR) - Final Nasal, Sinus - Swab No Organism Detected Laboratory Results 08/16/17 06:15 08/17/17 04:08 08/16/17 08/17/17 08/18/17 05:59 05:59 05:59 Intake Total 750 1400 200 Output Total 600 2150 1050 Balance 150 -750 -850 PT 12.8 SEC (12.0-15.0) 08/16/17 00:44 INR 0.97 (0.83-1.16) 08/16/17 00:44 - Physical Exam Constitutional: no apparent distress, chronically ill appearing, uncomfortable, No obese Cardiovascular: systolic murmur (I/ at sternum), No irregularly irregular, No tachycardia, No edema Respiratory: reduced air movement (bilat bases), inspiratory crackles (bilat bases), No expiratory wheeze, No bronchial breath sounds, No respiratory distress Gastrointestinal: normoactive bowel sounds, soft, non-tender abdomen, no palpable masses, No distension Neurologic: AAOx3, sensation intact bilaterally (lower ext), No weakness (motor 5/5 bilat LE), No facial droop Psychiatric: not encephalopathic, thought process linear, anxious, flat affect, No agitated ICD10 Worksheet Patient Problems: Problems Problem Status Onset Thoracic compression fracture Acute Nausea & vomiting Acute Hypertension Acute Shortness of breath Acute
--- NOTE | 2017-08-17 17:04 | PDMN ---
Medical Necessity Medical necessity: C/M review: est. > 2 MN LOS for eval and TX of acute diastolic exacerbation - new problem, possible pneumonia, requiring planned myocardial perfusion scan, ongoing IV Lasix, Duonebs, cardiac monitoring , pulse oximetry, supplemental O2, comorbid chronic cough, chronic pain wth continuous opiate dependency, HTN per H/P.
[2017-08-17] MEDS: LIDOCAINE 5% 1 EA PATCH TD SCH (22:17)
[2017-08-17] MEDS: traZODone 50 MG TAB PO SCH (22:18)
[2017-08-17] MEDS: clonazePAM 1 MG TAB PO SCH (22:18)
[2017-08-17] MEDS: CHOLECALCIFEROL VIT D3 1,000 UNITS TAB PO SCH (22:18)
[2017-08-17] MEDS: CETIRIZINE 10 MG TAB PO SCH (22:18)
[2017-08-17] MEDS: BACLOFEN 10 MG TAB PO SCH (22:18)
[2017-08-17] MEDS: ATORVASTATIN CALCIUM 20 MG TAB PO SCH (22:19)
[2017-08-17] MEDS: PREGABALIN 75 MG CAP PO SCH (22:19)
[2017-08-17] MEDS: MULTIVITAMINS 1 EACH TAB PO SCH (22:19)
[2017-08-17] MEDS: BENZONATATE 100 MG CAP PO PRN (22:20)
[2017-08-17] MEDS: MONTELUKAST SODIUM 10 MG TAB PO SCH (22:37)
[2017-08-17] MEDS ORDERED: CANN-EASE 2 GM TUBE TP PRN (23:02)
[2017-08-18 04:50] LABS: ANION GAP 14 mEq/L (8-16); CARBON DIOXIDE 28 mEq/l (22-31); CHLORIDE 87 mEq/L (97-110); CREATININE 1.1 mg/dL (0.6-1.0); GLOMERULAR FILTRATION RATE 50; GLUCOSE 99 mg/dL (70-100); MAGNESIUM 1.9 mg/dL (1.6-2.3); POTASSIUM 3.3 mEq/L (3.5-5.2); SODIUM 129 mEq/L (134-144)
[2017-08-18] MEDS: IPRATROPIUM/ALBUTEROL 3 ML DEYVIAL IH SCH ×2 (04:58→11:27)
[2017-08-18] MEDS ORDERED: POTASSIUM CL 20 MEQ TAB PO ONE (08:34)
[2017-08-18] MEDS: FLUTICASONE/SALMETER 250/50MCG DISKUS IH SCH (09:55)
[2017-08-18] MEDS ORDERED: REGADENOSON 0.4 MG/5 ML SYR IVP ONE (09:58)
[2017-08-18] MEDS: POLYETHYLENE GLYCOL 3350 17 GM PKT PO SCH (11:20)
[2017-08-18] MEDS: predniSONE 20 MG TAB PO SCH (11:20)
[2017-08-18] MEDS: BENZONATATE 100 MG CAP PO PRN (11:21)
[2017-08-18] MEDS: PANTOPRAZOLE SODIUM 40 MG TAB PO SCH (11:22)
[2017-08-18] MEDS: guaiFENesin 600 MG TAB.ER PO SCH (11:22)
--- NOTE | 2017-08-18 12:04 | CPR ---
[f rep st] NONINVASIVE CARDIAC PROCEDURE REPORT DATE OF PROCEDURE: 08/18/2017 PROCEDURE: Lexiscan nuclear stress test. INDICATION: Per patient, she has a history of coronary artery disease post surgery without intervent ion. She also has a history of heart failure in the setting of blood transfusions. She presented to the hospital after a fall and required surgery on her back. Post surgery, she developed shortness o f breath with hypoxia and chest pressure. Her EKG is abnormal with diffuse T wave flattening. The p atient's risk factors for coronary artery disease include hypertension and hyperlipidemia. PROCEDURE IN DETAIL: Consent was obtained and the patient was placed on continuous telemetry. Her r esting EKG revealed normal sinus rhythm with a heart rate of 63, NH interval of 152, QRS duration of 90, and a QTc of 463. She has diffuse T wave flattening and isolated Q wave in lead III. She was in fused with Lexiscan and complained of shortness of breath and a headache. She remained in normal sin us rhythm with occasional PVCs. Post infusion, her symptoms improved. Her blood pressure at rest wa s 120/80, then dropped to 100/70 with the infusion. PLAN: Await nuclear images. /[id number]/MODL
[2017-08-18 12:08] VITALS: BP 121/64; PULSE 78; RESP 17; TEMP 97.9; O2SAT 97
[2017-08-18] MEDS: POTASSIUM CL 10 MEQ TAB PO SCH ×2 (12:24→14:11)
[2017-08-18] MEDS: POTASSIUM CL 20 MEQ TAB PO ONE ×2 (12:24→14:11)
[2017-08-18] MEDS: ONDANSETRON 4 MG/2 ML VIAL IVP PRN (12:29)
--- NOTE | 2017-08-18 14:14 | PDDCSUM ---
Discharge Summary Discharge Summary: DISCHARGE SUMMARY FOLLOW-UP ITEMS: Repeat creatinine BUN and lytes this week and weekly thereafter DATE OF ADMISSION: 08/16/2017 DATE OF DISCHARGE: 08/18/2017 DISCHARGE DIAGNOSES: 1. Acute diastolic congestive heart failure exacerbation 2. Chronic cough 3. Chronic pain with continuous opiate dependency and regional pain syndrome 4. Possible pneumonia 5. Chronic hypertension 6. Acute hyponatremia 7. Acute hypokalemia 8. Acute atelectasis 9. Acute pleural effusion CONSULTATIONS: None PROCEDURES / IMAGING: Nuclear medicine stress test demonstrating no inducible ischemia, possible small areas of infarct atypically and inferiorly Echocardiogram demonstrating normal ejection fraction, no significant valvular abnormalities, diastolic dysfunction CT angiograms demonstrating no evidence of pulmonary embolism, small pleural effusion, atelectasis, possible consolidation CHIEF COMPLAINT: Acute shortness of breath, headache, general malaise SUBJECTIVE: Patient is feeling well at time of discharge, she continues to experience her cough, but this is chronic PHYSICAL EXAM ON DISCHARGE: Systolic blood pressure 120, heart rate 80, afebrile overnight, satting on 2 L nasal cannula, alert awake oriented x3, no apparent distress, heart rhythm is regular, with no murmurs rubs or gallops, lungs are clear to auscultation bilaterally with poor inspiratory effort, slightly reduced air movement in the bilateral bases, no inspiratory crackles or expiratory wheezes, no lower extremity edema LABS ON DISCHARGE: Serum sodium 129, potassium 3.3, creatinine 1.1, BUN 28, serum bicarbonate 28 HOSPITAL COURSE BY PROBLEM: The patient presented with shortness of breath, general malaise after she had been discharged to a care home facility. Most likely cause of her pulmonary symptoms is a combination of mild diastolic CHF as evidenced by pleural effusions, complicated by atelectasis and immobility, as well as possible lingering pneumonia from her most recent hospitalization. The patient had an echocardiogram which demonstrated diastolic dysfunction, no reduced ejection fraction, no focal wall motion abnormalities or valvular abnormalities. She also underwent a nuclear medicine stress test which demonstrated no inducible ischemia, with very small areas of possible previous infarction. She received IV diuretics during her hospitalization and she was maximally diuresed, with mild rise in her serum creatinine level, reduction in her potassium level, and decline in her serum sodium level, which was also partially due to increased free water intake by the patient on August 17. At the present time, the patient is euvolemic, and does not require further diuretics, and she should have her repeat serum chemistries, with an outpatient cardiology follow-up appointment. She will be placed empirically on aspirin 81 mg for secondary CAD prevention, will be continued on her statin. We have recommended increasing her exercise capacity, to reduce her atelectasis, and she will most likely require supplemental oxygen until she is able to ambulate regularly and consistently saturate above 90% on room air, at rest and with activity. The patient also received 3 subsequent days of antibiotics and steroids for possible lingering pneumonia, and does not require any further antibiotics or steroids at time of discharge. The patient is feeling symptomatically better at time of discharge, and I suspect that the reason that she was feeling so poorly on presentation was that she was symptomatically hypoxic, most likely secondary to the combination of the conditions outlined above, including atelectasis, CHF, pleural effusions. Now that these conditions have been treated, the patient is symptomatically feeling better. She continues to experience her chronic cough, and this has been worked up extensively in the outpatient setting, as outlined by a recent clinic consultation performed by Dr. Gilmer Ocampo. The patient did not experience appreciable benefit from antitussives, and although these can be continued, I would recommend that she follow up closely with Dr. Ocampo moving forward, to continue to work on symptomatic management. I think that there is a distinct possibility that her cough may be linked to some of her other somatic issues, which include regional pain syndrome as well as the patient being very susceptible to symptoms and side effects of medications as well as acute stressors. If this is indeed the case, then no particular medication will alleviate her symptoms. It will be difficult to discern whether the patient requires medical reassessment or hospitalization in the future, given that she will most likely continue to experience this cough, and I would recommend careful assessment of her on any future presentations in the emergency department to determine whether she actually warrants hospitalization. DISCHARGE MEDICATIONS: Please see official discharge medication reconciliation sheet in chart , aspirin 81 mg daily, discontinue Celebrex, as needed Tessalon Perles, continue all other home medications. DISCHARGE INSTRUCTIONS: Please follow up with Dr. Gilmer Ocampo as an outpatient, please schedule an outpatient cardiology follow-up appointment TIME SPENT: Greater than 30 minutes were spent on direct patient care, as well as discharge planning and preparation.
--- NOTE | 2017-08-18 14:21 | PDIAF ---
- Diagnosis Diagnosis: Acute diastolic CHF w/ atelectasis, chronic cough, hyponatremia Code Status: Full Code - Medication Management Discharge Medications: Medications to Continue on Transfer Baclofen [Baclofen 10 mg (*)] 20 mg PO HS 06/04/17 [Last Taken 08/09/17] Hydrochlorothiazide [HCTZ (*)] 25 mg PO HS 06/04/17 [Last Taken 08/09/17] Montelukast Sodium [Singulair 10 mg (*)] 10 mg PO HS 06/04/17 [Last Taken ] clonazePAM [klonoPIN (*)] 1 mg PO HS 06/04/17 [Last Taken 08/09/17] traZODone [traZODONE 50MG (*)] 100 mg PO HS 06/04/17 [Last Taken 08/09/17] Fluticasone Nasal [Flonase Nasal Talmage] 2 sprays NASAL HS 08/10/17 [Last Taken 08/09/17] Atorvastatin Calcium [Lipitor 20 mg (*)] 20 mg PO HS 08/11/17 [Last Taken ] Cetirizine [ZyrTEC 10 mg (*)] 10 mg PO HS 08/11/17 [Last Taken 08/09/17] Cholecalciferol Vit D3 [Vitamin D3 (*)] 1,000 units PO HS 08/11/17 [Last Taken 08/09/17] Estradiol [VAGIFEM] 10 mcg VG SUWE 08/11/17 [Last Taken 08/06/17] Lidocaine 5% [Lidoderm 5% Patch (*)] 1 ea TD HS 08/11/17 [Last Taken 08/09/17] Multivitamins [Multivitamin (*)] 1 each PO HS 08/11/17 [Last Taken 08/09/17] Pregabalin [Lyrica 75mg (*)] 150 mg PO HS 08/11/17 [Last Taken 08/09/17] Albuterol Hfa Anes Only [Proair Hfa Icu (*)] 2 puffs IH QID PRN #1 mdi 08/15/17 [Last Taken Unknown] Fluticasone/Salmeter 250/50Mcg [Advair 250/50 (*)] 1 puffs IH BID disk [Last Taken Unknown] Pantoprazole Sodium [Protonix 40mg (*)] 40 mg PO DAILY tab 08/15/17 [Last Taken Unknown] Polyethylene Glycol 3350 [Miralax 17 gm (*)] 17 gm PO DAILY pkt 08/15/17 [Last Taken Unknown] Sennosides/Docusate Sodium [Senokot-S] 1 - 2 tab PO BID tab 08/15/17 [Last Taken Unknown] Acetaminophen [Tylenol 325mg (*)] 650 mg PO Q4HRS PRN tab 08/18/17 [Last Taken Unknown] Aspirin EC [Aspirin EC 81 mg (*)] 81 mg PO DAILY #30 tab 08/18/17 [Last Taken Unknown] Benzonatate [Tessalon Pearles] 200 mg PO TID PRN cap 08/18/17 [Last Taken Unknown] Metoprolol Succinate Xr [Toprol Xl 50 mg (*)] 25 mg PO BID #0 08/18/17 [Last Taken 08/10/17 09:00] [facility] Antibiotics: NA Discharge Medications: Refer to the Discharge Home Medication list for PRN reason. PICC Care - Routine: N/A - Orders Services needed: Registered Nurse, Certified Shrimp [employer]er, Physical Therapy, Occupational Therapy Oxygen: 2L NC continuous, wean Diet Recommendation: cardiac -low fat low salt Weigh Patient: weekly Sloan: Not applicable Activity/Weight Bearing Restrictions: as tolerated Additional: Her COUGH is CHRONIC. Please do not send her to ED for evaluation of cough, unless there are other emergent issues. - Labs/Radiology BMP Date: 08/21/17 Call or Fax Lab and Imaging Results to: Dr. Florez - Follow Up Care Current Providers and Referrals: MEGHAN WILKES [Other] - As per Instructions Inessa Florez MD [Medical Doctor] - follow up in 1 week (please call to schedule appointment) Jabari Ocampo MD [Medical Doctor] - follow up in 2 weeks (please call to schedule appointment)
--- NOTE | 2017-08-18 14:49 | ASMTCMCOM ---
CM Note CM Note Notes: 08/18/2017 Case Management Note Transportation arranged by [facility] for [address] lease picker by Billy from [place] transport: wheelchair with O2. Faxed d/c notes to [facility] via [employer]. Date Signed: 08/18/2017 02:48 PM Electronically Signed By:Lenka Umaña RN
== END 2017-08-18 16:44 | DRG 291 ==
LOC: EDUNIT# → F2W 08-16 03:04 → OBSVTOIN 08-17 13:00
PROVIDERS: ADMIT Family Medicine; ATTEND Family Medicine
DX: I11.0 Hypertensive heart disease with heart failure (principal); I50.31 Acute diastolic (congestive) heart failure; J18.9 Pneumonia, unspecified organism; E87.1 Hypo-osmolality and hyponatremia; E87.6 Hypokalemia; J98.11 Atelectasis; I25.10 Atherosclerotic heart disease of native coronary artery without angina pectoris; R05 Cough; G89.29 Other chronic pain; F11.20 Opioid dependence, uncomplicated; G90.50 Complex regional pain syndrome I, unspecified; Z96.653 Presence of artificial knee joint, bilateral; Z86.718 Personal history of other venous thrombosis and embolism; I25.2 Old myocardial infarction
CPT/HCPCS: 96374; 97116-GP; 97161-GP; 97165-GO; 97535-GO; A9500; G0378; G8978-GP-CJ; G8979-GP-CI; G8987-GO-CI; G8988-GO-CI; G8989-GO-CI; J1170; J1940; J2405; J2785; Q9967

== ENCOUNTER → 2017-09-10 | Outpatient (CLI) | payer OTHER | LOC: BMCIMAGING 14:11 | PROVIDERS: ATTEND Family Medicine | DX: Z13.820 Encounter for screening for osteoporosis (principal); M80.08XA Age-related osteoporosis with current pathological fracture, vertebra(e), initial encounter for fracture ==

== ENCOUNTER → 2017-11-26 | Outpatient (CLI) | payer OTHER | LOC: FIMAGING 07:53 | PROVIDERS: ATTEND Physical Medicine & Rehabilitation | DX: M24.28 Disorder of ligament, vertebrae (principal); M51.26 Other intervertebral disc displacement, lumbar region; M47.896 Other spondylosis, lumbar region; M48.061 Spinal stenosis, lumbar region without neurogenic claudication; M48.54XG Collapsed vertebra, not elsewhere classified, thoracic region, subsequent encounter for fracture with delayed healing; R60.9 Edema, unspecified ==

== ENCOUNTER → 2019-01-01 | Outpatient (CLI) | payer OTHER ==
[~2019-01-01] MED LIST: ACETAMINOPHEN 500 MG TAB PO ONE; IMMUNE GLOBULIN 10 GM/100 ML VIAL IV ONE; IMMUNE GLOBULIN 20 GM/200 ML VIAL IV ONE; ONDANSETRON 4 MG/2 ML VIAL IVP ONE; ONDANSETRON 4 MG/2 ML VIAL ONE
[2019-01-01 11:08] VITALS: BP 149/82
== END ==
LOC: F1NOP 08:39
PROVIDERS: ATTEND Allergy & Immunology Allergy
PROC: 30233S1 Transfusion of Nonautologous Globulin into Peripheral Vein, Percutaneous Approach (ICD-10-PCS; principal; 2019-01-01)
DX: D80.3 Selective deficiency of immunoglobulin G [IgG] subclasses (principal)
CPT/HCPCS: 96365; 96374; 96375; J1200; J1459; J2405

== ENCOUNTER → 2019-01-04 | Outpatient (CLI) | payer OTHER | LOC: BMCIMAGING 11:25 | PROVIDERS: ATTEND Allergy & Immunology Allergy | DX: R05 Cough (principal); S22.050A Wedge compression fracture of T5-T6 vertebra, initial encounter for closed fracture; I70.0 Atherosclerosis of aorta ==

== ENCOUNTER → 2019-01-14 | Outpatient (CLI) | payer OTHER | LOC: FIMAGING 06:48 | PROVIDERS: ATTEND Physical Medicine & Rehabilitation | DX: M54.6 Pain in thoracic spine (principal) ==

== ENCOUNTER → 2019-02-01 | Outpatient (CLI) | payer OTHER | LOC: FIMAGING 09:30 | PROVIDERS: ATTEND Internal Medicine Rheumatology | DX: M85.89 Other specified disorders of bone density and structure, multiple sites (principal) ==

== ENCOUNTER → 2019-02-10 | Outpatient (CLI) | payer OTHER | LOC: FIMAGING 13:23 | PROVIDERS: ATTEND Family Medicine | DX: Z12.31 Encounter for screening mammogram for malignant neoplasm of breast (principal) ==

== ENCOUNTER 2019-03-10 18:44 | Emergency (ER) | payer OTHER ==
--- NOTE | 2019-03-10 19:11 | EDPHY ---
H & P Stated Complaint: wound to left hand, redness, painful since friday sent by Time Seen by Provider: 03/10/19 19:10 HPI/ROS: CHIEF COMPLAINT: Mild left hand redness after working in the garden, referred from urgent care for hypertension HISTORY OF PRESENT ILLNESS: The patient was seen at urgent care for mild cellulitis to the dorsum of her left hand which began after working in the garden over the weekend. The patient has had no fever, numbness, joint pain or lymphangitis with this. The patient was noted to be hypertensive at urgent care referred to the ED for further evaluation. She does have a history of hypertension and takes metoprolol and Cozaar each morning. She reports she has been compliant with medications. The patient arrives with a blood pressure of 230/120. She complains of a mild headache but denies any numbness, weakness, abdominal pain or difficulty breathing. REVIEW OF SYSTEMS: A comprehensive 10 point review of systems is otherwise negative aside from elements mentioned in the history of present illness. 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, bilateral TKRs, c sections - Social History Smoking Status: Never smoked - Physical Exam Exam: General Appearance: Alert, no distress Eyes: Pupils equal and round no pallor or injection ENT, Mouth: Mucous membranes moist Respiratory: There are no retractions, lungs are clear to auscultation Cardiovascular: Regular rate and rhythm Gastrointestinal: Abdomen is soft and nontender, no masses, bowel sounds normal Neurological: 5/5 strength noted all 4 extremities Skin: Small 4 x 4 cm area of cellulitis noted on the dorsum of the left hand where today single blister and area of fibrin Musculoskeletal: Neck is supple nontender Extremities: symmetrical, full range of motion Constitutional: Initial Vital Signs Temperature (C) 36.5 C 03/10/19 18:47 Heart Rate 68 03/10/19 18:47 Respiratory Rate 16 03/10/19 18:47 Blood Pressure 206/123 H 03/10/19 18:47 O2 Sat (%) 95 03/10/19 18:47 O2 Delivery Mode Room Air Allergies/Adverse Reactions: No Known Allergies Allergy (Verified 08/16/17 00:04) Home Medications: Medication Instructions Recorded Baclofen [Baclofen 10 mg (*)] 20 mg PO HS 06/04/17 Hydrochlorothiazide [HCTZ (*)] 25 mg PO HS 06/04/17 Montelukast Sodium [Singulair 10 10 mg PO HS 06/04/17 mg (*)] clonazePAM [klonoPIN (*)] 1 mg PO HS 06/04/17 traZODone [traZODONE 50MG (*)] 100 mg PO HS 06/04/17 Fluticasone Nasal [Flonase Nasal 2 sprays NASAL HS 08/10/17 [place]] Atorvastatin Calcium [Lipitor 20 20 mg PO HS 08/11/17 mg (*)] Cetirizine [ZyrTEC 10 mg (*)] 10 mg PO HS 08/11/17 Cholecalciferol Vit D3 [Vitamin D3 1,000 units PO HS 08/11/17 (*)] Estradiol [VAGIFEM] 10 mcg VG SUWE 08/11/17 Lidocaine 5% [Lidoderm 5% Patch] 1 ea TD HS 08/11/17 Multivitamins [Multivitamin (*)] 1 each PO HS 08/11/17 Pregabalin [Lyrica 75mg (*)] 150 mg PO HS 08/11/17 Fluticasone/Salmeter 250/50Mcg 1 puffs IH BID disk 08/15/17 [Advair 250/50 (*)] Pantoprazole Sodium [Protonix 40mg 40 mg PO DAILY tab 08/15/17 (*)] Polyethylene Glycol 3350 [Miralax 17 gm PO DAILY pkt 08/15/17 17 gm (*)] Sennosides/Docusate Sodium 1 - 2 tab PO BID tab 08/15/17 [Senokot-S] Acetaminophen [Tylenol 325mg (*)] 650 mg PO Q4HRS PRN tab 08/18/17 Aspirin EC [Aspirin EC 81 mg (*)] 81 mg PO DAILY #30 tab 08/18/17 Benzonatate [Tessalon Pear[place]] 200 mg PO TID PRN cap 08/18/17 Metoprolol Succinate Xr [Toprol Xl 25 mg PO BID #0 08/18/17 50 mg (*)] Celecoxib 03/10/19 Cephalexin [Keflex] 500 mg PO QID #28 cap 03/10/19 Losartan Potassium 03/10/19 Omeprazole 03/10/19 Spiriva Inhaler (RX) 03/10/19 Xopenex 03/10/19 Medical Decision Making ED Course/Re-evaluation: Patient presents the ED with mild left hand cellulitis and asymptomatic hypertension. The patient was given an extra dose of metoprolol. She received 1 g of IV ceftriaxone. Patient's blood pressure continued to be elevated at 1 90/120 without symptoms. I did order 5 mg of IV hydralazine at 8:30 p.m.. Blood pressure recheck at 8:50 p.m. Is now 160/95 the time of my check. Patient tells me she typically is well controlled. At this point time I will have her do blood pressure checks in the morning and contact her primary care provider she continues to have asymptomatic hypertension. Patient is advised to return to the emergency department for hypertension in the setting of chest pain, shortness of breath or neurologic symptoms. The patient did receive ceftriaxone in the emergency department and will be discharged home with a prescription for Keflex for her hand cellulitis. Differential Diagnosis: Differential diagnosis considered includes cellulitis, abscess, lymphangitis, hypertensive emergency, primary hypertension - Data Points Laboratory Results: Laboratory Results 03/10/19 19:30 03/10/19 19:30 03/10/19 03/10/19 19:30 19:30 WBC 6.09 10^3/uL 10^3/uL (3.80-9.50) RBC 4.17 10^6/uL L 10^6/uL (4.18-5.33) Hgb 13.5 g/dL g/dL (12.6-16.3) Hct 39.8 % % (38.0-47.0) MCV 95.4 fL fL (81.5-99.8) MCH 32.4 pg pg (27.9-34.1) MCHC 33.9 g/dL g/dL (32.4-36.7) RDW 13.6 % % (11.5-15.2) Plt Count 284 10^3/uL 10^3/uL (150-400) MPV 10.7 fL fL (8.7-11.7) Neut % (Auto) 61.9 % % (39.3-74.2) Lymph % (Auto) 22.0 % % (15.0-45.0) [place] % (Auto) 12.0 % % (4.5-13.0) Eos % (Auto) 2.5 % % (0.6-7.6) Baso % (Auto) 1.1 % % (0.3-1.7) Nucleat RBC Rel Count 0.0 % % (0.0-0.2) Absolute Neuts (auto) 3.77 10^3/uL 10^3/uL (1.70-6.50) Absolute Lymphs (auto) 1.34 10^3/uL 10^3/uL (1.00-3.00) Absolute Monos (auto) 0.73 10^3/uL 10^3/uL (0.30-0.80) Absolute Eos (auto) 0.15 10^3/uL 10^3/uL (0.03-0.40) Absolute Basos (auto) 0.07 10^3/uL 10^3/uL (0.02-0.10) Absolute Nucleated RBC 0.00 10^3/uL 10^3/uL (0-0.01) Immature Gran % 0.5 % % (0.0-1.1) Immature Gran # 0.03 10^3/uL 10^3/uL (0.00-0.10) Sodium 135 mEq/L mEq/L (135-145) Potassium 4.0 mEq/L mEq/L (3.5-5.2) Chloride 105 mEq/L mEq/L (97-110) Carbon Dioxide 22 mEq/l mEq/l (22-31) Anion Gap 8 mEq/L mEq/L (6-14) BUN 13 mg/dL mg/dL (7-23) Creatinine 0.8 mg/dL mg/dL (0.6-1.0) Estimated GFR > 60 Glucose 85 mg/dL mg/dL (70-100) Calcium 9.3 mg/dL mg/dL (8.5-10.4) Medications Given: Discontinued Medications Albuterol (Proventil Neb) 3 ml IH EDNOW ONE Stop: 03/10/19 20:33 Last Admin: 03/10/19 20:36 Dose: 3 ml Hydralazine HCl (Apresoline) 5 mg IVP EDNOW ONE Stop: 03/10/19 20:28 Last Admin: 03/10/19 20:30 Dose: 5 mg Ceftriaxone Sodium/Dextrose (Rocephin 1 Gm (Premix)) 50 mls @ 100 mls/hr IV EDNOW ONE PRN Reason: Protocol Stop: 03/10/19 19:42 Last Admin: 03/10/19 19:26 Dose: 50 mls Sodium Chloride (Ns) 1,000 mls @ 0 mls/hr IV ONCE ONE; Wide Open PRN Reason: Protocol Stop: 03/10/19 19:14 Last Admin: 03/10/19 19:25 Dose: 1,000 mls Metoprolol Tartrate (Lopressor) 50 mg PO EDNOW ONE Stop: 03/10/19 19:14 Last Admin: 03/10/19 19:23 Dose: 50 mg Departure - Departure Disposition: Home, Routine, Self-Care Clinical Impression: Cellulitis of left hand, Hypertension Condition: Good Instructions: Cellulitis (ED) Additional Instructions: 1. Please schedule a follow-up appointment with your primary care provider this week for blood pressure recheck. Return to the emergency department for markedly elevated blood pressure in the setting of chest pain, headache or neurologic symptoms. 2. Please take antibiotics as directed for your skin infection. Return to the ED immediately for increased pain, redness, swelling or fever. Referrals: Lynn Palma MD [Primary Care Provider] - As per Instructions Prescriptions: Cephalexin [Keflex] 500 mg PO QID #28 cap
[2019-03-10] MEDS ORDERED: NS 1,000 ML IV ONE (19:13)
[2019-03-10] MEDS ORDERED: METOPROLOL TARTRATE 50 MG TAB PO ONE (19:13)
[2019-03-10 19:41] LABS: PLATELET COUNT 284 10^3/uL (150-400)
[2019-03-10] MEDS ORDERED: hydrALAZINE 20 MG/ML VIAL IVP ONE (20:27)
[2019-03-10] MEDS ORDERED: ALBUTEROL 3 ML DEYVIAL IH ONE (20:32)
[2019-03-10 20:54] VITALS: BP 169/124
== END 2019-03-10 21:12 | disposition home or self-care (01) ==
DX: L03.114 Cellulitis of left upper limb (principal); I10 Essential (primary) hypertension; I25.2 Old myocardial infarction; G89.29 Other chronic pain; E86.9 Volume depletion, unspecified
CPT/HCPCS: 96365; 96375; 99284; J0360; J0696; J7613